=== PATIENT | male | born 1975 | race Caucasian/White ===

== ENCOUNTER → 2021-08-15 | Outpatient (CLI) | payer OTHER, SELFPAY ==
[2021-08-15 17:03] LABS: Mucous, Urine 0 SEEN /hpf (<or=2+); Squamous Epithelial Cells - UA 0 SEEN /hpf (0-5); White Blood Cells 0 SEEN /hpf (0-5)
[2021-08-15 17:47] LABS: Color, Urine Yellow (Yellow); Glucose, Dipstick Normal (Normal); Ketone-Dipstick Negative (Negative); Leukocyte Esterase-Dipstick 25 /ul (Negative); Nitrite-Dipstick Negative (Negative); Occult Blood-Urine 10 /ul (Negative); Protein-Dipstick 15 mg/dl (Negative); Urine Bilirubin Dipstick Negative (Negative); Urine Clarity Clear (Clear); Urine Urobilinogen Normal (Normal)
[2021-08-15 17:50] LABS: Absolute Lymphocyte Count 2.12 X10^3/uL (0.83-4.51); Absolute Neutrophil Count 5.6 X10^3/uL (2.0-7.7); Basophil# 0.04 X10^3/uL; Basophil% 0.4 % (0-1); Eosinophil# 0.19 X10^3/uL; Eosinophils% 2.1 % (0-5); Hemoglobin 15.9 g/dL (13.0-16.5); Lymphocyte # 2.12 X10^3/ul (0.83-4.51); Lymphocyte % 23.4 % (19-41); Mean Corp Hgb Conc 32.4 g/dL (32-36); Mean Corpuscular Hgb 32.3 pg (27.0-32.0); Mean Corpuscular Volume 99.6 fL (80-94); Mean Platelet Vol. 11.8 fl (6.2-12.0); Monocyte# 1.04 X10^3/uL; Monocyte% 11.5 % (0-10); NRBC Flagged by Analyzer 0 % (0-5); Neutrophil # 5.64 X10^3/uL (2.7-7.7); Neutrophil % 62.3 % (47-70); Platelet Count 188 K/mm3 (150-450); RBC Distribution Width CV 12.5 % (11.6-14.6); Red Blood Count 4.92 M/mm3 (4.6-6.2); White Blood Count 9.1 K/mm3 (4.4-11.0)
[2021-08-15 17:56] LABS: Bacteria 1+ /hpf (None Seen); Red Blood Cells-Urine 5-10 SEEN /hpf (0-5)
[2021-08-15 19:16] LABS: ALB/GLOB Ratio 0.9 RATIO (0.9-2.4); AST(SGOT) 30 U/L (15-37); Albumin, Serum 3.6 g/dL (3.2-5.0); BUN 18 mg/dL (7-18); BUN/Creat Ratio 16.4 RATIO (10-20); Calcium,Total 8.9 mg/dL (8.5-10.1); Globulin 3.8 g/dL (2.2-4.2); Glucose 100 mg/dL (74-106); Protein, Total 7.4 g/dL (6.4-8.2)
[2021-08-15 19:17] LABS: Alanine Aminotransfer ALT/SGPT 55 U/L (16-61); Alkaline Phosphatase 122 U/L (45-117); Chloride 107 mmol/L (98-107); Cholesterol 247 mg/dL (200); Potassium 3.7 mmol/L (3.5-5.1); Sodium Level 137 mmol/L (136-145)
[2021-08-15 19:18] LABS: Anion Gap 9 (5-15); High Density Lipoprotein 32 mg/dL; Thyroid Stim Hormone (TSH) 3.25 uIU/mL (0.358-3.74)
[2021-08-16 06:53] LABS: EST Glomerular Filtration Rate 77 mL/min (>60); Est Glom Filt Rate - Afr Amer 93 mL/min (>60)
[2021-08-16 07:45] LABS: Triglycerides 649 mg/dL
[2021-08-16 07:46] LABS: Very Low Density Lipoprotein 130 mg/dL (5-40)
== END | disposition home or self-care (01) ==
LOC: MFPLAB 16:44
PROVIDERS: Visit Provider Family Medicine
DX: I10 Essential (primary) hypertension (principal); R68.82 Decreased libido
CPT/HCPCS: 36415; 80053; 80061; 81001; 84402; 84403; 84443; 85025

== ENCOUNTER → 2021-08-23 | Outpatient (CLI) | payer OTHER, SELFPAY ==
--- NOTE | 2021-08-23 14:54 | CYSPIN_PTH ---
PATIENT: [place] LOC: [facility] U#:[id number] AGE/SX: 45/M ROOM: RE08/23/[address]: Dr. Janak Porter MD : 1975 BED: DIS: 08/23/2021 SPEC #: [id number] RECD: 08/24/21 07:42 STATUS: ALONZO NEGRETE #: [id number] ALEXANDRA: 08/23/21 14:[address]: Janak Porter DEPT: CYTOLOGY RECD BY: Makenzie Ackerman Tissues: Urine Procedures: Pap Stain (control) Special Stain Group II Cytospin Fluid HEADER OPERATION: Not noted PRE-OP DIAGNOSIS: Not noted TISSUE SUBMITTED: Urine for cytology DIAGNOSIS CYTOLOGY Urine for cytology (cytospin): Negative for malignant cells. Paucicellular specimen. MANISH:nadia 08/24/2021 CYTOLOGY STUDY Slides are reviewed. CYTOLOGY GROSS Received is 150 ml of light yellow cloudy fluid labeled with the patient's name and and designated per the requisition as urine. Submitted for cytology preparation. / nadia 08/23/2021 TC:4 CPT: 47304
[2021-08-23 14:55] LABS: Cytology, Body Fluid / CSF SEE PATHOLOGY REPORT
[2021-08-23 18:21] LABS: Cholesterol 259 mg/dL (200); High Density Lipoprotein 38 mg/dL; Triglycerides 288 mg/dL; Very Low Density Lipoprotein 58 mg/dL (5-40)
== END | disposition home or self-care (01) ==
LOC: MFPLAB 14:54
PROVIDERS: Visit Provider Family Medicine
DX: I10 Essential (primary) hypertension (principal)
CPT/HCPCS: 36415; 80061; 88108; 88313

== ENCOUNTER → 2021-11-27 | Outpatient (CLI) | payer OTHER, SELFPAY | END | disposition home or self-care (01) | LOC: LABSPEC 14:52 | PROVIDERS: Visit Provider Otolaryngology | DX: H65.21 Chronic serous otitis media, right ear (principal) ==

== ENCOUNTER → 2023-02-19 | Outpatient (CLI) | payer OTHER, SELFPAY ==
[2023-02-19 12:28] LABS: Bacteria 0 SEEN /hpf (None Seen); Mucous, Urine 0 SEEN /hpf (<or=2+); Red Blood Cells-Urine 0 SEEN /hpf (0-5); Squamous Epithelial Cells - UA 0 SEEN /hpf (0-5); White Blood Cells 0 SEEN /hpf (0-5)
--- OUTSIDE RECORDS SUMMARY | 2023-02-19 13:10 | XMS RPT_ITS | CCD ---
Author Name Unknown Address [address] [place] [address] Organization [facility] Care Team Providers Care Senior Engineering Team Leader Name Role Phone PROVIDER, UNSPECIFIED Unavailable Unavailabl e NIVIA, SARAN Unavailable Unavailable NIVIA, SARAN Unavailable Unavailable NIVIA, SARAN Unavailable Unavailable NIVIA, SARAN Unavailable Unavailable PROVIDER, UNSPECIFIED Unavailable Unavailabl e PCP, Unknown Unavailable Unavailable Benja Garcia Unavailable Unavailable Tracy Rudd Unavailable Unavailable PCP, Unknown Unavailable Unavailable Dev Maya Unavailable Unavailable PCP, Unknown Unavailable Unavailable Dinesh Leon Unavailable Unavailable PCP, Unknown Unavailable Unavailable Kizzy Mtz Unavailable Unavailable PCP, Unknown Unavailable Unavailable Required, No Pcp Unavailable Unavailable Cj Jain Unavailable Unavailable GURVINDER LAZO Attending Unavailabl e Unavailable Unavailable Unavailable Medications Current Medications Medication Drug Class(es) Dates Sig (Normalized) Sig (Original) Nicotine (1 source) Cholinergic Nicotinic Agonist Start: 10-16-2018 apply 1 dose transdermal route every twenty-four hours Nicotine Active 1 PATCH Q24H 56 October 16, 2018 9:51am PHENobarbital 100 mg oral tablet (1 source) Start: 06-07-2016 Phenobarbital Active 100 MG 2 times per day June 07, 2016 11:17am Problems Active Problems Problem Classification Problem Date Documented Da te Episodic/Chronic Other upper respiratory dise ase (2 sources) Pain in throat 01-26-2021 Episodic Past or Other Problems Problem Classification Problem Date Documented Date Episodic/Chronic Abdominal pain (2 sources) Epigastric pain; Translations: [Unspecified abdominal pain] Onset: 10-21-2016 Episodic Biliary tract disease (1 source) Calculus of gallbladder without cholecystitis without obstruction; Translations: [CALCULUS OF GALLBLADDER W/O CHOLECYSTITIS W/O OBSTRUCTION] Onset: 10-21-2016 Episodic Results Test Name Value Interpretation Reference Range Facil ity Vital Signs Date Time Vital Sign Value Performing Clinician Facility 01-26-2021 15:55-0500 Body height 193 cm No Pcp Required [facility] 01-26-2021 15:55-0500 Body temperature 97.88 [degF] No Pcp Required [facility] 01-26-2021 15:55-0500 Diastolic blood pressure 94 mm[Hg] No Pcp Required [facility] 01-26-2021 15:55-0500 Heart rate 87 /min No Pcp Required [facility] 01-26-2021 15:55-0500 SaO2% (BldA) [Mass fraction] 94 % No Pcp Required [facility] 01-26-2021 15:55-0500 Systolic blood pressure 154 mm[Hg] No Pcp Required [facility] Encounters Encounter Date Encounter Type Care Provider Facility Start: 01-17-2022 End: 01-18-2022 ambulatory PA MUNIRA HOLLINS Facility:B Start: 01-26-2021 End: 01-26-2021 Emergency department patient visit Cj Jain [facility] Start: 08-13-2017 End: 08-13-2017 Ambulatory Kizzy Mtz Facility:[facility] Start: 01-15-2017 Ambulatory Dinesh Flores ity:[facility] Start: 11-05-2016 End: 11-05-2016 Ambulatory Dev Maya Facility:[facility] Start: 10-28-2016 End: 10-28-2016 Ambulatory Tracy Rudd Facility:[facility] Start: 10-25-2016 Emergency department patient visit SARAN GONZÁLES [facility] Start: 10-25-2016 End: 10-25-2016 Emergency department patient visit UNSPECIFIED PROVIDER [facility] Start: 10-21-2016 End: 10-21-2016 Emergency department patient visit Unknown PCP Facility:[facility] Payers Date Payer Category Payer Unknown [id number] 1975 Unknown [id number] Self-pay Self Pay [id number] Unknown [id number] Unknown [employer] [place] Social History Date Type Detail Facility Tobacco smoking status NHIS Unknown if ever smoked [facility] Work Phone: Start: 1975 Sex Assigned At Male [facility] Work Phone: Tobacco smoking consumption unknown [facility] Goals Date Patient Goal Desired Activity /State Summary Purpose Family History No Family History Records FoundNo Family History Records FoundNo Family History Records FoundNo Family History Records FoundNo Family History Records Found Advance Directives No Advanced Directives Records FoundNo Advanced Directives Records FoundNo Advanced Directives Records FoundNo Advanced Directives Records FoundNo Advanced Directives Records Found Assessments No Assessments Information Available Additional Source Comments (unrecognized sect ion and content) No Status Records FoundNo Status Records FoundNo Status Records FoundNo Status Records FoundNo Status Records Found INFORMATION SOURCE (unrecogn ized section and content) DATE CREATED AUTHOR AUTHOR'S ORGANIZ ATION 08/14/2017 [facility] DATE CREATED AUTHOR AUTHOR'S ORGANIZ ATION 01/15/2019 [facility] DATE CREATED AUTHOR AUTHOR'S ORGANIZ ATION 02/01/2021 [facility] DATE CREATED AUTHOR AUTHOR'S ORGANIZ ATION 01/18/2022 [facility] ([place]) <item> Privacy Markings (unrecogniz ed section and content) Section Author: Kizzy Harvey PROHIBITION ON REDISCLOSURE OF CONFIDENTIAL INFORMATION This notice accompanies a disclosure of information concerning a client made to you with the consent of such client. FOR RECORDS PERTAINING TO PATIENTS WHO ARE OR HAVE BEEN ENROLLED IN A CHEMICAL DEPENDENCY/SUBSTANCEABUSE PROGRAM, SOME INFORMATION MAY BE OMITTED. This clinical summary was aggregated from multiple sources. Caution should be exercised in using it in the provision of clinical care. This summary normalizes information from multiple sources, and as a consequence, information in this document may materially change the coding, format and clinical context of patient data. In addition, data may be omitted in some cases. CLINICAL DECISIONS SHOULD BE BASED ON THE PRIMARY CLINICAL RECORDS. [employer] [facility]. provides no warranty or guarantee of the accuracy or completeness of information in this document.
[2023-02-19 15:33] LABS: Color, Urine Yellow (Yellow); Glucose, Dipstick Normal (Normal); Ketone-Dipstick Negative (Negative); Leukocyte Esterase-Dipstick Negative /ul (Negative); Nitrite-Dipstick Negative (Negative); Occult Blood-Urine Negative /ul (Negative); Protein-Dipstick Negative (Negative); Specific Gravity, Urine 1.015 (1.002-1.030); Urine Bilirubin Dipstick Negative (Negative); Urine Clarity Clear (Clear); Urine Urobilinogen Normal (Normal)
[2023-02-19 15:40] LABS: Absolute Lymphocyte Count 2.27 X10^3/uL (0.83-4.51); Absolute Neutrophil Count 5.4 X10^3/uL (2.0-7.7); Basophil# 0.03 X10^3/uL; Basophil% 0.3 % (0-1); Eosinophil# 0.14 X10^3/uL; Eosinophils% 1.6 % (0-5); Hematocrit 48.8 % (40-54); Hemoglobin 15.8 g/dL (13.0-16.5); Lymphocyte # 2.27 X10^3/ul (0.83-4.51); Lymphocyte % 26.3 % (19-41); Mean Corp Hgb Conc 32.4 g/dL (32-36); Mean Corpuscular Hgb 31.9 pg (27.0-32.0); Mean Corpuscular Volume 98.6 fL (80-94); Mean Platelet Vol. 11.8 fl (6.2-12.0); Monocyte# 0.76 X10^3/uL; Monocyte% 8.8 % (0-10); NRBC Flagged by Analyzer 0 % (0-5); Neutrophil # 5.41 X10^3/uL (2.7-7.7); Neutrophil % 62.8 % (47-70); Platelet Count 210 K/mm3 (150-450); RBC Distribution Width CV 13.2 % (11.6-14.6); RBC Distribution Width SD 47.7 fl (35.1-43.9); Red Blood Count 4.95 M/mm3 (4.6-6.2); White Blood Count 8.6 K/mm3 (4.4-11.0)
[2023-02-19 16:08] LABS: ALB/GLOB Ratio 1.1 RATIO (0.9-2.4); AST(SGOT) 24 U/L (15-37); Alanine Aminotransfer ALT/SGPT 40 U/L (16-61); Albumin, Serum 3.9 g/dL (3.2-5.0); Alkaline Phosphatase 115 U/L (45-117); Anion Gap 8 (5-15); BUN 15 mg/dL (7-18); BUN/Creat Ratio 15.3 RATIO (10-20); Chloride 109 mmol/L (98-107); Cholesterol 191 mg/dL (200); Creatinine, Serum 0.98 mg/dL (0.70-1.30); EST Glomerular Filtration Rate 87 mL/min (>60); Est Glom Filt Rate - Afr Amer 105 mL/min (>60); Globulin 3.7 g/dL (2.2-4.2); Glucose 81 mg/dL (74-106); High Density Lipoprotein 43 mg/dL; Magnesium 2.4 mg/dL (1.6-2.6); Potassium 4.2 mmol/L (3.5-5.1); Protein, Total 7.6 g/dL (6.4-8.2); Sodium Level 138 mmol/L (136-145); Thyroid Stim Hormone (TSH) 2.87 uIU/mL (0.358-3.74); Triglycerides 162 mg/dL; Very Low Density Lipoprotein 32 mg/dL (5-40)
== END | disposition home or self-care (01) ==
PROVIDERS: PCP Family Medicine; Visit Provider Family Medicine
DX: I10 Essential (primary) hypertension (principal)
CPT/HCPCS: 36415; 80053; 80061; 81001; 83735; 84443; 85025

== ENCOUNTER → 2023-09-05 | Outpatient (CLI) | payer OTHER, SELFPAY ==
--- NOTE | 2023-09-05 12:38 | RAD_ITS ---
STUDY: X-RAY CHEST REASON FOR EXAM: Male, 47 years old. CHEST PAIN TECHNIQUE: PA and lateral views of the chest. COMPARISON: None. FINDINGS: The lungs are clear and expanded. There is no demonstrated pleural abnormality. Normal size heart. Normal mediastinum and steffany. Normal visualized pulmonary arteries. Normal visualized aortic arch and descending thoracic aorta. Normal visualized thoracic spine. Normal visualized ribs, clavicles, and shoulders. There is no demonstrated abnormality of the visualized soft tissue structures of the upper abdomen. RAD/Chest PA and Lateral IMPRESSION: Normal x-ray examination of the chest. Electronically Signed: Efrain Boswell MD at 17:39 EDT ,
[2023-09-05 15:15] LABS: Absolute Lymphocyte Count 2.23 X10^3/uL (0.83-4.51); Absolute Neutrophil Count 4.6 X10^3/uL (2.0-7.7); Basophil# 0.03 X10^3/uL; Basophil% 0.4 % (0-1); Eosinophils% 1.3 % (0-5); Hematocrit 49.7 % (40-54); Hemoglobin 15.8 g/dL (13.0-16.5); Lymphocyte # 2.23 X10^3/ul (0.83-4.51); Lymphocyte % 28.2 % (19-41); Mean Corp Hgb Conc 31.8 g/dL (32-36); Mean Corpuscular Hgb 31.1 pg (27.0-32.0); Mean Corpuscular Volume 97.8 fL (80-94); Monocyte# 0.88 X10^3/uL; Monocyte% 11.1 % (0-10); NRBC Flagged by Analyzer 0 % (0-5); Neutrophil # 4.64 X10^3/uL (2.7-7.7); Neutrophil % 58.7 % (47-70); Platelet Count 190 K/mm3 (150-450); RBC Distribution Width CV 13.7 % (11.6-14.6); Red Blood Count 5.08 M/mm3 (4.6-6.2); White Blood Count 7.9 K/mm3 (4.4-11.0)
[2023-09-05 15:54] LABS: ALB/GLOB Ratio 1.1 RATIO (0.9-2.4); AST(SGOT) 29 U/L (15-37); Alanine Aminotransfer ALT/SGPT 41 U/L (16-61); Alkaline Phosphatase 110 U/L (45-117); Anion Gap 6 (5-15); BUN 14 mg/dL (7-18); BUN/Creat Ratio 14.6 RATIO (10-20); Calcium,Total 9.3 mg/dL (8.5-10.1); Chloride 109 mmol/L (98-107); Cholesterol 205 mg/dL (200); Creatinine, Serum 0.96 mg/dL (0.70-1.30); EST Glomerular Filtration Rate 89 mL/min (>60); Est Glom Filt Rate - Afr Amer 108 mL/min (>60); Globulin 3.7 g/dL (2.2-4.2); Glucose 95 mg/dL (74-106); High Density Lipoprotein 43 mg/dL; Potassium 4.2 mmol/L (3.5-5.1); Protein, Total 7.7 g/dL (6.4-8.2); Sodium Level 139 mmol/L (136-145); Thyroid Stim Hormone (TSH) 2.52 uIU/mL (0.358-3.74); Triglycerides 193 mg/dL; Very Low Density Lipoprotein 39 mg/dL (5-40)
== END | disposition home or self-care (01) ==
PROVIDERS: PCP Family Medicine; Referring Provider Family Medicine; Visit Provider Family Medicine
DX: R07.9 Chest pain, unspecified (principal); E78.5 Hyperlipidemia, unspecified
CPT/HCPCS: 36415; 71046; 80053; 80061; 84443; 85025

== ENCOUNTER → 2023-10-15 | Outpatient (CLI) | payer OTHER, SELFPAY ==
--- NOTE | 2023-10-15 12:50 | STRESSREP ---
Stress Test Report Date: 10/15/2023 Procedure: Exercise tolerance test Indications: Chest pain Consent: Per the patient Procedure: The patient exercised on a Dayday protocol for 7 minutes and 37 seconds achieving a peak heart rate of 155 bpm (89% predicted maximal heart rate) with a peak blood pressure 212/62 mmHg and a peak MET capacity of approximately 10.1 MET's. The baseline ECG demonstrated sinus rhythm. The peak exercise ECG demonstrated sinus tachycardia with no ischemic changes. There were no cardiac dysrhythmias pretest, during exercise, or recovery. The functional capacity was considered average. The patient had no complaints of chest discomfort during exercise or recovery. The examination was discontinued secondary to target heart rate being achieved. Impression: 1. Technically adequate (percent predicted maximal heart rate greater than 85%) exercise tolerance test 2. Peak exercise ECG with no ischemic changes 3. There were no cardiac dysrhythmias during exercise or recovery. Hypertensive response to exercise. This note was generated with [employer] software. It may contain incorrect words, spelling, and punctuation that were not noted in checking the note before signing.
== END | disposition home or self-care (01) ==
LOC: CVS 11:10
PROVIDERS: PCP Family Medicine; Referring Provider Family Medicine; Visit Provider Family Medicine
DX: R07.9 Chest pain, unspecified (principal)
CPT/HCPCS: 93017

== ENCOUNTER → 2024-11-12 | Outpatient (CLI) | payer OTHER, SELFPAY ==
--- OUTSIDE RECORDS SUMMARY | 2024-11-12 16:00 | XMS RPT_ITS | CCD ---
Author Organization [facility] Care Team Providers Care Acid Blower Name Role Phone PROVIDER, UNSPECIFIED Unavailable Unavailabl [...] Cj Jain Unavailable Unavailable GURVINDER LAZO Attending UnavailJanak Lindo Attending Unavailable Janak Porter Primary Care Unavailable Janak Porter Attending Unavailable Janak Porter Primary Care Unavailable Janak Porter Referring Unavailable Janak Porter Attending Unavailable Janak Porter Primary Care Unavailable Janak Porter Referring Unavailable Antonieta Zapien Attending Unavailable Janak Porter Referring Unavailable Janak Porter Primary Care Unavailable Janak Porter Consulting Unavailable Unavailable Unavailable Unavailable Medications Current Medications Medication Drug Class(es) Dates Sig (Normalized) Sig (Original) hydrocortisone 25 mg/ml topical cream (1 source) Corticosteroid Start: 10-24-2022 Hydrocortisone (Procto-Med Hc) 2.5 % cream with perineal applicator Active 1 APPLIC RC TWICE A DAY October 23, 2022 11:00pm Lisinopril (1 source) Angiotensin Converting Enzyme Inhibitor Start: 10-24-2022 take 1 mg by mouth once daily Lisinopril Active MG PO DAILY October 23, 2022 11:00pm Nicotine (1 source) Cholinergic Nicotinic Agonist Start: 10-16-2018 apply 1 dose transdermal route every twenty-four hours Nicotine Active 1 PATCH Q24H 56 October 16, 2018 9:51am omeprazole 20 mg delayed release oral capsule (1 source) Proton Pump Inhibitor Start: 10-24-2022 take 1 mg by mouth once daily Omeprazole Active MG PO DAILY October 23, 2022 11:00pm PHENobarbital 100 mg oral tablet (2 sources) Start: 10-24-2022 take 100 mg by mouth twice daily Phenobarbital Active 100 MG PO TWICE A DAY October 23, 2022 11:00pm Start: 06-07-2016 Phenobarbital Active 100 MG 2 times per day June 07, 2016 11:17am rosuvastatin calcium 5 mg oral tablet (1 source) HMG-CoA Reductase Inhibitor Start: 10-24-2022 take 1 mg by mouth once daily Rosuvastatin Active MG PO DAILY October 23, 2022 11:00pm Problems Active Problems Problem Classification Problem Date Documented Date Episodic/Chronic Essential hypertension (1 source) Essential (primary) hypertension; Translations: [Essential (primary) hypertension] Onset: 02-25-2023 Chronic Hemorrhoids (1 source) Thrombosed external hemorrhoids; Translations: [Perianal venous thrombosis] 10-24-2022 Episodic Nonspecific chest pain (2 sources) Chest pain, unspecified; Translations: [Chest pain, unspecified] Onset: 10-31-2023 Episodic Other upper respiratory disease (2 sources) Pain in throat 01-26-2021 Episodic Comment on above: SORE THROAT Substance-related disorders (1 source) Nicotine dependence, cigarettes, uncomplicated; Translations: [NICOTINE DEPENDENCE, CIGARETTES, UNCOMPLICATED] Onset: 10-21-2016 Chronic Unclassified (1 source) Noninfective gastroenteritis and colitis, unspecified / K52.9(ICD-10) Onset: 10-25-2016 Unclassified (1 source) Lower abdominal pain, unspecified / R10.30(ICD-10) Onset: 10-25-2016 Past or Other Problems Problem Classification Problem Date Documented Date Episodic/Chronic Abdominal pain (2 sources) Epigastric pain; Translations: [Unspecified abdominal pain] Onset: 10-21-2016 Episodic Biliary tract disease (1 source) Calculus of gallbladder without cholecystitis without obstruction; Translations: [CALCULUS OF GALLBLADDER W/O CHOLECYSTITIS W/O OBSTRUCTION] Onset: 10-21-2016 Episodic Results Test Name Value Interpretation Reference Range Facility Stress Reporton 10-15-2023 Stress Report [facility] Cardiovascular Services [address] [place] [address] MR#: [id number] Acct: [id number] Name: NADEGE HILLS Rep #: [id number] : 1975 47 From: Antonieta Zapien MD Primary Care: Dr. Janak Porter MD Status: REG CLI Referring Dr: Janak Porter MD Sex: M C Stress Test Report Date: 10/15/2023 Procedure: Exercise tolerance test Indications: Chest pain Consent: Per the patient Procedure: The patient exercised on a Dayday protocol for 7 minutes and 37 seconds achieving a peak heart rate of 155 bpm (89% predicted maximal heart rate) with a peak blood pressure 212/62 mmHg and a peak MET capacity of approximately 10.1 MET's. The baseline ECG demonstrated sinus rhythm. The peak exercise ECG demonstrated sinus tachycardia with no ischemic changes. There were no cardiac dysrhythmias pretest, during exercise, or recovery. The functional capacity was considered average. The patient had no complaints of chest discomfort during exercise or recovery. The examination was discontinued secondary to target heart rate being achieved. Impression: 1. Technically adequate (percent predicted maximal heart rate greater than 85%) exercise tolerance test 2. Peak exercise ECG with no ischemic changes 3. There were no cardiac dysrhythmias during exercise or recovery. Hypertensive response to exercise. This note was generated with M2Gation software. It may contain incorrect words, spelling, and punctuation that were not noted in checking the note before signing. 10/15/23 1251 Date Antonieta Zapien MD CC: Dr. Janak Porter MD Date Dictated: 10/15/23 1250 Date Transcribed: 10/15/23 125 Geotechnical Operating Engineer: CHRISTIAN Signed Normal [facility] CBC W/Diff, Automatedon 07- Absolute Lymph 2.23 X10 3/uL Normal 0.83-4.51 [facility] Comment on above: Order Comment: Order Date: 09/05/23 Order Info: 0184-1 - CBCD Performed By: #### L 100.0100, L500.4050, L500.4100, L501.9520 #### [facility] Laboratory [address] [place], [address] Absolute Neut 4.6 X10 3/uL Normal 2.0-7.7 [facility] Comment on above: Order Comment: Order Date: 09/05/23 Order Info: 0184-1 - CBCD Performed By: #### L 100.0100, L500.4050, L500.4100, L501.9520 #### [facility] [address] [place], [address] Basophils/100 WBC (Bld) 0.4 % Normal 0-1 [facility] Comment on above: Order Comment: Order Date: 09/05/23 Order Info: 018-1 - CBCD Performed By: #### L 100.0100, L500.4050, L500.4100, L501.9520 #### [facility] [address] [place], [address] Eosinophils/100 WBC (Bld) 1.3 % Normal 0-5 [facility] Comment on above: Order Comment: Order Date: 09/05/23 Order Info: 0184-1 - CBCD Performed By: #### L 100.0100, L500.4050, L500.4100, L501.9520 #### [facility] [address] [place], [address] Erythrocyte distribution width (RBC) [Ratio] 13.7 % Normal 11.6-14.6 [facility] Comment on above: Order Comment: Order Date: 09/05/23 Order Info: 0184-1 - CBCD Performed By: #### L 100.0100, L500.4050, L500.4100, L501.9520 #### [facility] [address] [place], [address] Hematocrit (Bld) [Volume fraction] 49.7 % Normal 40-54 [facility] Comment on above: Order Comment: Order Date: 09/05/23 Order Info: 0184-1 - CBCD Performed By: #### L 100.0100, L500.4050, L500.4100, L501.9520 #### [facility] [address] [place], [address] Hemoglobin (Bld) [Mass/Vol] 15.8 g/dL Normal 13.0-16.5 [facility] Comment on above: Order Comment: Order Date: 09/05/23 Order Info: 0184-1 - CBCD Performed By: #### L 100.0100, L500.4050, L500.4100, L501.9520 #### [facility] [address] [place], [address] IG% 0.300 Normal 0.0-0.9 [facility] Comment on above: Order Comment: Order Date: 09/05/23 Order Info: 0184-1 - CBCD Result Comment: IG% - Immature Granulocytes (promyelocytes, myelocytes and metamyelocytes) > 1% indicates that a LEFT SHIFT is Present. Performed By: #### L 100.0100, L500.4050, L500.4100, L501.9520 #### [facility] [address] [place], [address] Lymphocytes/100 WBC (Bld) 28.2 % Normal 19-41 [facility] Comment on above: Order Comment: Order Date: 09/05/23 Order Info: 0184-1 - CBCD Performed By: #### L 100.0100, L500.4050, L500.4100, L501.9520 #### [facility] [address] [place], [address] MCH (RBC) [Entitic mass] 31.1 pg Normal 27.0-32.0 [facility] Comment on above: Order Comment: Order Date: 09/05/23 Order Info: 0184-1 - CBCD Performed By: #### L 100.0100, L500.4050, L500.4100, L501.9520 #### [facility] [address] [place], [address] MCHC (RBC) [Mass/Vol] 31.8 g/dL Low 32-36 [facility] Comment on above: Order Comment: Order Date: 09/05/23 Order Info: 0184-1 - CBCD Performed By: #### L 100.0100, L500.4050, L500.4100, L501.9520 #### [facility] [address] [place], [address] MCV (RBC) [Entitic vol] 97.8 fL High 80-94 [facility] Comment on above: Order Comment: Order Date: 09/05/23 Order Info: 0184-1 - CBCD Performed By: #### L 100.0100, L500.4050, L500.4100, L501.9520 #### [facility] [address] [place], [address] Monocytes/100 WBC (Bld) 11.1 % High 0-10 [facility] Comment on above: Order Comment: Order Date: 09/05/23 Order Info: 0184-1 - CBCD Performed By: #### L 100.0100, L500.4050, L500.4100, L501.9520 #### [facility] [address] [place], [address] Neutrophils/100 WBC (Bld) 58.7 % Normal 47-70 [facility] Comment on above: Order Comment: Order Date: 09/05/23 Order Info: 0184-1 - CBCD Performed By: #### L 100.0100, L500.4050, L500.4100, L501.9520 #### [facility] [address] [place], [address] Nucleated RBC (Bld) [#/Vol] 0 10*3/uL Normal 0-5 [facility] Comment on above: Order Comment: Order Date: 09/05/23 Order Info: 0184-1 - CBCD Performed By: #### L 100.0100, L500.4050, L500.4100, L501.9520 #### [facility] [address] [place], [address] Platelet mean volume (Bld) [Entitic vol] 12.0 fL Normal 6.2-12.0 [facility] Comment on above: Order Comment: Order Date: 09/05/23 Order Info: 0184-1 - CBCD Performed By: #### L 100.0100, L500.4050, L500.4100, L501.9520 #### [facility] [address] [place], [address] Platelets (Bld) [#/Vol] 190 10*3/uL Normal 150-450 [facility] Comment on above: Order Comment: Order Date: 09/05/23 Order Info: 0184- - CBCD Performed By: #### L 100.0100, L500.4050, L500.4100, L501.9520 #### [facility] [address] [place], [address] RBC (Bld) [#/Vol] 5.08 10*6/uL Normal 4.6-6.2 [facility] Comment on above: Order Comment: Order Date: 09/05/23 Order Info: 0184-1 - CBCD Performed By: #### L 100.0100, L500.4050, L500.4100, L501.9520 #### [facility] [address] [place], [address] RDW SD 50.0 fl High 35.1-43.9 [facility] Comment on above: Order Comment: Order Date: 09/05/23 Order Info: 0184-1 - CBCD Performed By: #### L 100.0100, L500.4050, L500.4100, L501.9520 #### [facility] [address] [place], [address] WBC (Bld) [#/Vol] 7.9 10*3/uL Normal 4.4-11.0 [facility] Comment on above: Order Comment: Order Date: 09/05/23 Order Info: 0184-1 - CBCD Performed By: #### L 100.0100, L500.4050, L500.4100, L501.9520 #### [facility] [address] [place], [address] Chest PA and Lateralon 09-04 Chest PA and Lateral [facility] Imaging Services [address] [place], [place] [address] Chest PA and Lateral MR#: [id number] Acct: [id number] Name: NADEGE HILLS Rep #: [id number] : 1975 M 47 From: Efrain Boswell MD PCP: Dr. Janak Porter MD Status: [facility] Study: Chest PA and Lateral Date of Exam: 09/05/23 Exam# [id number] Ordering Dr: Janak Porter MD [id number] STUDY: X-RAY CHEST REASON FOR EXAM: Male, 47 years old. CHEST PAIN TECHNIQUE: PA and lateral views of the chest. COMPARISON: None. FINDINGS: The lungs are clear and expanded. There is no demonstrated pleural abnormality. Normal size heart. Normal mediastinum and steffany. Normal visualized pulmonary arteries. Normal visualized aortic arch and descending thoracic aorta. Normal visualized thoracic spine. Normal visualized ribs, clavicles, and shoulders. There is no demonstrated abnormality of the visualized soft tissue structures of the upper abdomen. RAD/Chest PA and Lateral IMPRESSION: Normal x-ray examination of the chest. Electronically Signed: Efrain Boswell MD at 17:39 EDT , CC: Dr. Janak Porter MD Geotechnical Operating Engineer: Signed Normal [facility] Comprehensive Metabolic Prof ilon 09-05-2023 Albumin [Mass/Vol] 4.0 g/dL Normal 3.2-5.0 [facility] Comment on above: Order Comment: Order Date: 09/05/23 Order Info: [id number] - CMP Order Info: [id number] - LIPID Order Info: [id number] - TSH Performed By: #### L 100.0100, L500.4050, L500.4100, L501.9520 #### [facility] [address] [place], [place], [address] Albumin/Globulin [Mass ratio] 1.1 {ratio} Normal 0.9-2.4 [facility] Comment on above: Order Comment: Order Date: 09/05/23 Order Info: [id number] - CMP Order Info: [id number] - LIPID Order Info: [id number] - TSH Performed By: #### L 100.0100, L500.4050, L500.4100, L501.9520 #### [facility] [address] [place], [place], [id number] ALK P 110 U/L Normal 45-117 [facility] Comment on above: Order Comment: Order Date: 09/05/23 Order Info: [id number] - CMP Order Info: [id number] - LIPID Order Info: [id number] - TSH Performed By: #### L 100.0100, L500.4050, L500.4100, L501.9520 #### [facility] [address] [place], [address] ALT [Catalytic activity/Vol] 41 U/L Normal 16-61 [facility] Comment on above: Order Comment: Order Date: 09/05/23 Order Info: 785- - CMP Order Info: [id number] - LIPID Order Info: 3 - TSH Performed By: #### L 100.0100, L500.4050, L500.4100, L501.9520 #### [facility] [address] [place], [address] AST [Catalytic activity/Vol] 29 U/L Normal 15-37 [facility] Comment on above: Order Comment: Order Date: 09/05/23 Order Info: [id number] - CMP Order Info: - LIPID Order Info: [id number] - TSH Performed By: #### L 100.0100, L500.4050, L500.4100, L501.9520 #### [facility] [address] [place], [address] Bilirubin [Mass/Vol] 0.70 mg/dL Normal 0.20-1.00 [facility] Comment on above: Order Comment: Order Date: 09/05/23 Order Info: [id number] - CMP Order Info: - LIPID Order Info: [id number] - TSH Result Comment: For patients on eltrombopag therapy, use of Dimension [place] TBIL is not recommended. Performed By: #### L 100.0100, L500.4050, L500.4100, L501.9520 #### [facility] [address] [place], [address] BUN/CRE 14.6 RATIO Normal 10-20 [facility] Comment on above: Order Comment: Order Date: 09/05/23 Order Info: [id number] - CMP Order Info: [id number] - LIPID Order Info: 3 - TSH Performed By: #### L 100.0100, L500.4050, L500.4100, L501.9520 #### [facility] [address] [place], [address] CA,Total 9.3 mg/dL Normal 8.5-10.1 [facility] Comment on above: Order Comment: Order Date: 09/05/23 Order Info: [id number] - CMP Order Info: [id number] - LIPID Order Info: [id number] - TSH Performed By: #### L 100.0100, L500.4050, L500.4100, L501.9520 #### [facility] [address] [place], [address] Chloride [Moles/Vol] 109 mmol/L High 98-107 [facility] Comment on above: Order Comment: Order Date: 09/05/23 Order Info: [id number] - CMP Order Info: - LIPID Order Info: [id number] - TSH Performed By: #### L 100.0100, L500.4050, L500.4100, L501.9520 #### [facility] [address] [place], [address] CO2 [Moles/Vol] 24.0 mmol/L Normal 21.0-32.0 [facility] Comment on above: Order Comment: Order Date: 09/05/23 Order Info: [id number] - CMP Order Info: - LIPID Order Info: [id number] - TSH Performed By: #### L 100.0100, L500.4050, L500.4100, L501.9520 #### [facility] [address] [place], [address] Creatinine [Mass/Vol] 0.96 mg/dL Normal 0.70-1.30 [facility] Comment on above: Order Comment: Order Date: 09/05/23 Order Info: 0786- - CMP Order Info: [id number] - LIPID Order Info: [id number] - TSH Result Comment: The validity of the calculated GFR GFRAA in patients over 70 years has not been determined. Clinical correlation is essential. Performed By: #### L 100.0100, L500.4050, L500.4100, L501.9520 #### [facility] [address] [place], [address] EST GFR - AA 108 mL/min Normal >60 [facility] Comment on above: Order Comment: Order Date: 09/05/23 Order Info: [id number] - CMP Order Info: [id number] - LIPID Order Info: [id number] - TSH Result Comment: Afri can [place] GFR Calc Performed By: #### L 100.0100, L500.4050, L500.4100, L501.9520 #### [facility] [address] [place], [address] GAP 6 Normal 5-15 [facility] Comment on above: Order Comment: Order Date: 09/05/23 Order Info: [id number] - CMP Order Info: [id number] - LIPID Order Info: [id number] - TSH Performed By: #### L 100.0100, L500.4050, L500.4100, L501.9520 #### [facility] [address] [place], [address] GFR/1.73 sq M.predicted among non-blacks MDRD (S/P/Bld) [Vol rate/Area] 89 mL/min/{1.73_m2} Normal >60 [facility] Comment on above: Order Comment: Order Date: 09/05/23 Order Info: 07 - CMP Order Info: [id number] - LIPID Order Info: [id number] - TSH Result Comment: Non- GFR Calc Performed By: #### L 100.0100, L500.4050, L500.4100, L501.9520 #### [facility] [address] [place], [address] Globulin (S) [Mass/Vol] 3.7 g/dL Normal 2.2-4.2 [facility] Comment on above: Order Comment: Order Date: 09/05/23 Order Info: 86- - CMP Order Info: [id number] - LIPID Order Info: 3 - TSH Performed By: #### L 100.0100, L500.4050, L500.4100, L501.9520 #### [facility] [address] [place], [address] Glucose [Mass/Vol] 95 mg/dL Normal 74-106 [facility] Comment on above: Order Comment: Order Date: 09/05/23 Order Info: 0786- - CMP Order Info: [id number] - LIPID Order Info: 3 - TSH Performed By: #### L 100.0100, L500.4050, L500.4100, L501.9520 #### [facility] [address] [place], [address] Potassium [Moles/Vol] 4.2 mmol/L Normal 3.5-5.1 [facility] Comment on above: Order Comment: Order Date: 09/05/23 Order Info: 0786 - CMP Order Info: [id number] - LIPID Order Info: 3 - TSH Performed By: #### L 100.0100, L500.4050, L500.4100, L501.9520 #### [facility] [address] [place], [address] Sodium [Moles/Vol] 139 mmol/L Normal 136-145 [facility] Comment on above: Order Comment: Order Date: 09/05/23 Order Info: 0786- - CMP Order Info: [id number] - LIPID Order Info: 3 - TSH Performed By: #### L 100.0100, L500.4050, L500.4100, L501.9520 #### [facility] [address] [place], [address] T PROT 7.7 g/dL Normal 6.4-8.2 [facility] Comment on above: Order Comment: Order Date: 09/05/23 Order Info: 0786- - CMP Order Info: [id number] - LIPID Order Info: [id number] - TSH Performed By: #### L 100.0100, L500.4050, L500.4100, L501.9520 #### [facility] [address] [place], [address] Urea nitrogen [Mass/Vol] 14 mg/dL Normal 7-18 [facility] Comment on above: Order Comment: Order Date: 09/05/23 Order Info: [id number] - CMP Order Info: [id number] - LIPID Order Info: [id number] - TSH Performed By: #### L 100.0100, L500.4050, L500.4100, L501.9520 #### [facility] [address] [place], [address] Lipid Profileon 09-05-2023 Cholesterol [Mass/Vol] 205 mg/dL High 200 [facility] Comment on above: Order Comment: Order Date: 02/19/23 Order Info: 0184-1 - CBCD Result Comment: <200 mg/dL Desirable 200-240 mg/dL Borderline >240 mg/dL High Risk Performed By: #### L 100.0100, L501.5200, L501.9520, L500.4100, L500.4050 #### [facility] [address] [place], [address] Cholesterol in HDL [Mass/Vol] 43 mg/dL Normal [facility] Comment on above: Order Comment: Order Date: 02/19/23 Order Info: 0184-1 - CBCD Result Comment: The drugs N-Acetylcysteine and Metamizole may falsely depress this assay. Reference Range HDL <40 mg/dL Low HDL Cholesterol HDL >or= 60 mg/dL High HDL Cholesterol Performed By: #### L 100.0100, L501.5200, L501.9520, L500.4100, L500.4050 #### [facility] [address] [place], [address] Cholesterol in LDL [Mass/Vol] 123 mg/dL Normal 0-130 [facility] Comment on above: Order Comment: Order Date: 02/19/23 Order Info: 0184-1 - CBCD Performed By: #### L 100.0100, L501.5200, L501.9520, L500.4100, L500.4050 #### [facility] [address] [place], [address] Cholesterol in VLDL [Mass/Vol] 39 mg/dL Normal 5-40 [facility] Comment on above: Order Comment: Order Date: 02/19/23 Order Info: 0184- - CBCD Performed By: #### L 100.0100, L501.5200, L501.9520, L500.4100, L500.4050 #### [facility] [address] [place], [address] Triglyceride [Mass/Vol] 193 mg/dL Normal [facility] Comment on above: Order Comment: Order Date: 02/19/23 Order Info: 0184- - CBCD Result Comment: The drugs N-Acetylcysteine and Metamizole may falsely depress this assay. Serum Triglycerides Reference Interval Normal <150 mg/dL Borderline high 150 - 199 mg/dL High 200 - 499 mg/dL Very High > or = 500 mg/dL Performed By: #### L 100.0100, L501.5200, L501.9520, L500.4100, L500.4050 #### [facility] [address] [place], [address] Thyroid Stim Hormone (TSH)on 09-05-2023 TSH 2.52 uIU/mL Normal 0.358-3.74 [facility] Comment on above: Order Comment: Order Date: 02/19/23 Order Info: 0184-1 - CBCD Performed By: #### L 100.0100, L501.5200, L501.9520, L500.4100, L500.4050 #### [facility] [address] [place], [address] Absolute lymphocyte countOrd ered By: Janak Porter on 02-19-2023 Lymphocytes Auto (Unsp spec) [#/Vol] 2.27 10*3/uL 0.83-4.51 [facility] Basophil percentageOrdered B y: Janak Porter on 02-19-2023 Basophil percentage 0 SEEN /hpf 0-5 [facility] Basophils/100 WBC (Bld) 0.3 % 0-1 [facility] Bilirubin [Mass/Vol] 0.50 mg/dL 0.20-1.00 [facility] Comment on above: For patients on eltr ombopag therapy, use of Dimension [place] TBIL is not recommended. Chloride [Moles/Vol] 109 mmol/L 98-107 [facility] Cholesterol [Mass/Vol] 191 mg/dL <200 [facility] Comment on above: <200 mg/dL Desirable 200-240 mg/dL Borderline >240 mg/dL High Risk Eosinophils/100 WBC (Bld) 1.6 % 0-5 [facility] Glucose [Mass/Vol] 81 mg/dL 74-106 [facility] Neutrophils (Bld) [#/Vol] 5.4 10*3/uL 2.0-7.7 [facility] Neutrophils/100 WBC (Bld) 62.8 % 47-70 [facility] Potassium [Moles/Vol] 4.2 mmol/L 3.5-5.1 [facility] Comment on above: Slight Hemolysis, Re sult may be falsely increased. Protein [Mass/Vol] 7.6 g/dL 6.4-8.2 [facility] Sodium [Moles/Vol] 138 mmol/L 136-145 [facility] Triglyceride [Mass/Vol] 162 mg/dL <199 [facility] Comment on above: The drugs N-Acetylcy steine and Metamizole may falsely depress this assay.Serum Triglycerides Reference Interval Normal <150 mg/dL Borderline high 150 - 199 mg/dL High 200 - 499 mg/dL Very High > or = 500 mg/dL WBC (Bld) [#/Vol] 8.6 10*3/uL 4.4-11.0 [facility] Bilirubin Test strip Ql (U)O rdered By: Janak Porter on 02-19-2023 Bilirubin Ql (U) Negative Negative [facility] Blood erythrocytes count (nu mber/volume)Ordered By: Janak Porter on 02-19-2023 RBC (Bld) [#/Vol] 4.95 10*6/uL 4.6-6.2 [facility] Blood hemoglobin measurement (mass/volume)Ordered By: Janak Porter on 02-19-2023 Hemoglobin (Bld) [Mass/Vol] 15.8 g/dL 13.0-16.5 [facility] Blood lymphocytes/100 leukoc ytesOrdered By: Janak Porter on 02-19-2023 Lymphocytes/100 WBC (Bld) 26.3 % 19-41 [facility] Blood monocytes/100 leukocyt esOrdered By: Janak Porter on 02-19-2023 Monocytes/100 WBC (Bld) 8.8 % 0-10 [facility] Blood platelet mean volumeOr dered By: Janak Porter on 02-19-2023 Platelet mean volume (Bld) [Entitic vol] 11.8 fL 6.2-12.0 [facility] CBC W/Diff, Automatedon Absolute Lymph 2.27 X10 3/uL Normal 0.83-4.51 [facility] Comment on above: Order Comment: Order Date: 02/19/23 Order Info: [id number] - CBCD Performed By: #### L 100.0100, L501.5200, L501.9520, L500.4100, L500.4050 #### [facility] [address] [place], [place], [id number] Absolute Neut 5.4 X10 3/uL Normal 2.0-7.7 [facility] Comment on above: Order Comment: Order Date: 02/19/23 Order Info: [id number] - CBCD Performed By: #### L 100.0100, L501.5200, L501.9520, L500.4100, L500.4050 #### [facility] [address] [place], [address] Basophils/100 WBC (Bld) 0.3 % Normal 0-1 [facility] Comment on above: Order Comment: Order Date: 02/19/23 Order Info: [id number] - CBCD Performed By: #### L 100.0100, L501.5200, L501.9520, L500.4100, L500.4050 #### [facility] [address] [place], [address] Eosinophils/100 WBC (Bld) 1.6 % Normal 0-5 [facility] Comment on above: Order Comment: Order Date: 02/19/23 Order Info: [id number] - CBCD Performed By: #### L 100.0100, L501.5200, L501.9520, L500.4100, L500.4050 #### [facility] [address] [place], [address] Erythrocyte distribution width (RBC) [Ratio] 13.2 % Normal 11.6-14.6 [facility] Comment on above: Order Comment: Order Date: 02/19/23 Order Info: [id number] - CBCD Performed By: #### L 100.0100, L501.5200, L501.9520, L500.4100, L500.4050 #### [facility] [address] [place], [address] Hematocrit (Bld) [Volume fraction] 48.8 % Normal 40-54 [facility] Comment on above: Order Comment: Order Date: 02/19/23 Order Info: [id number] - CBCD Performed By: #### L 100.0100, L501.5200, L501.9520, L500.4100, L500.4050 #### [facility] [address] [place], [address] Hemoglobin (Bld) [Mass/Vol] 15.8 g/dL Normal 13.0-16.5 [facility] Comment on above: Order Comment: Order Date: 02/19/23 Order Info: [id number] - CBCD Performed By: #### L 100.0100, L501.5200, L501.9520, L500.4100, L500.4050 #### [facility] [address] [place], [address] IG% 0.200 Normal 0.0-0.9 [facility] Comment on above: Order Comment: Order Date: 02/19/23 Order Info: [id number] - CBCD Result Comment: IG% - Immature Granulocytes (promyelocytes, myelocytes and metamyelocytes) > 1% indicates that a LEFT SHIFT is Present. Performed By: #### L 100.0100, L501.5200, L501.9520, L500.4100, L500.4050 #### [facility] [address] [place], [address] Lymphocytes/100 WBC (Bld) 26.3 % Normal 19-41 [facility] Comment on above: Order Comment: Order Date: 02/19/23 Order Info: [id number] - CBCD Performed By: #### L 100.0100, L501.5200, L501.9520, L500.4100, L500.4050 #### [facility] [address] [place], [address] MCH (RBC) [Entitic mass] 31.9 pg Normal 27.0-32.0 [facility] Comment on above: Order Comment: Order Date: 02/19/23 Order Info: [id number] - CBCD Performed By: #### L 100.0100, L501.5200, L501.9520, L500.4100, L500.4050 #### [facility] [address] [place], [address] MCHC (RBC) [Mass/Vol] 32.4 g/dL Normal 32-36 [facility] Comment on above: Order Comment: Order Date: 02/19/23 Order Info: [id number] - CBCD Performed By: #### L 100.0100, L501.5200, L501.9520, L500.4100, L500.4050 #### [facility] [address] [place], [address] MCV (RBC) [Entitic vol] 98.6 fL High 80-94 [facility] Comment on above: Order Comment: Order Date: 02/19/23 Order Info: [id number] - CBCD Performed By: #### L 100.0100, L501.5200, L501.9520, L500.4100, L500.4050 #### [facility] [address] [place], [address] Monocytes/100 WBC (Bld) 8.8 % Normal 0-10 [facility] Comment on above: Order Comment: Order Date: 02/19/23 Order Info: [id number] - CBCD Performed By: #### L 100.0100, L501.5200, L501.9520, L500.4100, L500.4050 #### [facility] [address] [place], [address] Neutrophils/100 WBC (Bld) 62.8 % Normal 47-70 [facility] Comment on above: Order Comment: Order Date: 02/19/23 Order Info: [id number] - CBCD Performed By: #### L 100.0100, L501.5200, L501.9520, L500.4100, L500.4050 #### [facility] [address] [place], [address] Nucleated RBC (Bld) [#/Vol] 0 10*3/uL Normal 0-5 [facility] Comment on above: Order Comment: Order Date: 02/19/23 Order Info: [id number] - CBCD Performed By: #### L 100.0100, L501.5200, L501.9520, L500.4100, L500.4050 #### [facility] [address] [place], [address] Platelet mean volume (Bld) [Entitic vol] 11.8 fL Normal 6.2-12.0 [facility] Comment on above: Order Comment: Order Date: 02/19/23 Order Info: [id number] - CBCD Performed By: #### L 100.0100, L501.5200, L501.9520, L500.4100, L500.4050 #### [facility] [address] [place], [address] Platelets (Bld) [#/Vol] 210 10*3/uL Normal 150-450 [facility] Comment on above: Order Comment: Order Date: 02/19/23 Order Info: [id number]- - CBCD Performed By: #### L 100.0100, L501.5200, L501.9520, L500.4100, L500.4050 #### [facility] [address] [place], [address] RBC (Bld) [#/Vol] 4.95 10*6/uL Normal 4.6-6.2 [facility] Comment on above: Order Comment: Order Date: 02/19/23 Order Info: [id number]- - CBCD Performed By: #### L 100.0100, L501.5200, L501.9520, L500.4100, L500.4050 #### [facility] [address] [place], [address] RDW SD 47.7 fl High 35.1-43.9 [facility] Comment on above: Order Comment: Order Date: 02/19/23 Order Info: [id number] - CBCD Performed By: #### L 100.0100, L501.5200, L501.9520, L500.4100, L500.4050 #### [facility] [address] [place], [address] WBC (Bld) [#/Vol] 8.6 10*3/uL Normal 4.4-11.0 [facility] Comment on above: Order Comment: Order Date: 02/19/23 Order Info: [id number] - CBCD Performed By: #### L 100.0100, L501.5200, L501.9520, L500.4100, L500.4050 #### [facility] [address] [place], [address] Comprehensive Metabolic Prof ilon 02-19-2023 Albumin [Mass/Vol] 3.9 g/dL Normal 3.2-5.0 [facility] Comment on above: Order Comment: Order Date: 02/19/23 Order Info: [id number] - CMP Order Info: [id number] - LIPID Order Info: [id number] - MG Order Info: [id number] - TSH Performed By: #### L 100.0100, L501.5200, L501.9520, L500.4100, L500.4050 #### [facility] [address] [place], [address] Albumin/Globulin [Mass ratio] 1.1 {ratio} Normal 0.9-2.4 [facility] Comment on above: Order Comment: Order Date: 02/19/23 Order Info: [id number] - CMP Order Info: [id number] - LIPID Order Info: [id number] - MG Order Info: [id number] - TSH Performed By: #### L 100.0100, L501.5200, L501.9520, L500.4100, L500.4050 #### [facility] [address] [place], [address] ALK P 115 U/L Normal 45-117 [facility] Comment on above: Order Comment: Order Date: 02/19/23 Order Info: [id number] - CMP Order Info: [id number] - LIPID Order Info: [id number] - MG Order Info: [id number] - TSH Performed By: #### L 100.0100, L501.5200, L501.9520, L500.4100, L500.4050 #### [facility] [address] [place], [address] ALT [Catalytic activity/Vol] 40 U/L Normal 16-61 [facility] Comment on above: Order Comment: Order Date: 02/19/23 Order Info: [id number] - CMP Order Info: [id number] - LIPID Order Info: [id number] - MG Order Info: [id number] - TSH Performed By: #### L 100.0100, L501.5200, L501.9520, L500.4100, L500.4050 #### [facility] [address] [place], [address] AST [Catalytic activity/Vol] 24 U/L Normal 15-37 [facility] Comment on above: Order Comment: Order Date: 02/19/23 Order Info: [id number] - CMP Order Info: [id number] - LIPID Order Info: [id number] - MG Order Info: 301-3 - TSH Result Comment: Slig ht Hemolysis, Result may be falsely increased. Performed By: #### L 100.0100, L501.5200, L501.9520, L500.4100, L500.4050 #### [facility] [address] [place], [address] Bilirubin [Mass/Vol] 0.50 mg/dL Normal 0.20-1.00 [facility] Comment on above: Order Comment: Order Date: 02/19/23 Order Info: [id number] - CMP Order Info: [id number] - LIPID Order Info: [id number] - MG Order Info: [id number] - TSH Result Comment: For patients on eltrombopag therapy, use of Dimension [place] TBIL is not recommended. Performed By: #### L 100.0100, L501.5200, L501.9520, L500.4100, L500.4050 #### [facility] [address] [place], [address] BUN/CRE 15.3 RATIO Normal 10-20 [facility] Comment on above: Order Comment: Order Date: 02/19/23 Order Info: 86-1 - CMP Order Info: [id number] - LIPID Order Info: [id number] - MG Order Info: 3015-3 - TSH Performed By: #### L 100.0100, L501.5200, L501.9520, L500.4100, L500.4050 #### [facility] [address] [place], [address] CA,Total 9.0 mg/dL Normal 8.5-10.1 [facility] Comment on above: Order Comment: Order Date: 02/19/23 Order Info: 86-1 - CMP Order Info: [id number] - LIPID Order Info: [id number] - MG Order Info: 3 - TSH Performed By: #### L 100.0100, L501.5200, L501.9520, L500.4100, L500.4050 #### [facility] [address] [place], [address] Chloride [Moles/Vol] 109 mmol/L High 98-107 [facility] Comment on above: Order Comment: Order Date: 02/19/23 Order Info: 86-1 - CMP Order Info: [id number] - LIPID Order Info: [id number] - MG Order Info: [id number] - TSH Performed By: #### L 100.0100, L501.5200, L501.9520, L500.4100, L500.4050 #### [facility] [address] [place], [address] CO2 [Moles/Vol] 21.0 mmol/L Normal 21.0-32.0 [facility] Comment on above: Order Comment: Order Date: 02/19/23 Order Info: [id number] - CMP Order Info: [id number] - LIPID Order Info: [id number] - MG Order Info: 3 - TSH Performed By: #### L 100.0100, L501.5200, L501.9520, L500.4100, L500.4050 #### [facility] [address] [place], [address] Creatinine [Mass/Vol] 0.98 mg/dL Normal 0.70-1.30 [facility] Comment on above: Order Comment: Order Date: 02/19/23 Order Info: [id number] - CMP Order Info: [id number] - LIPID Order Info: [id number] - MG Order Info: [id number] - TSH Result Comment: The validity of the calculated GFR GFRAA in patients over 70 years has not been determined. Clinical correlation is essential. Performed By: #### L 100.0100, L501.5200, L501.9520, L500.4100, L500.4050 #### [facility] [address] [place], [address] EST GFR - AA 105 mL/min Normal >60 [facility] Comment on above: Order Comment: Order Date: 02/19/23 Order Info: [id number] - CMP Order Info: [id number] - LIPID Order Info: [id number] - MG Order Info: [id number] - TSH Result Comment: Afri can [place] GFR Calc Performed By: #### L 100.0100, L501.5200, L501.9520, L500.4100, L500.4050 #### [facility] [address] [place], [address] GAP 8 Normal 5-15 [facility] Comment on above: Order Comment: Order Date: 02/19/23 Order Info: [id number] - CMP Order Info: [id number] - LIPID Order Info: [id number] - MG Order Info: [id number] - TSH Performed By: #### L 100.0100, L501.5200, L501.9520, L500.4100, L500.4050 #### [facility] [address] [place], [address] GFR/1.73 sq M.predicted among non-blacks MDRD (S/P/Bld) [Vol rate/Area] 87 mL/min/{1.73_m2} Normal >60 [facility] Comment on above: Order Comment: Order Date: 02/19/23 Order Info: [id number] - CMP Order Info: [id number] - LIPID Order Info: [id number] - MG Order Info: [id number] - TSH Result Comment: Non- GFR Calc Performed By: #### L 100.0100, L501.5200, L501.9520, L500.4100, L500.4050 #### [facility] [address] [place], [address] Globulin (S) [Mass/Vol] 3.7 g/dL Normal 2.2-4.2 [facility] Comment on above: Order Comment: Order Date: 02/19/23 Order Info: [id number] - CMP Order Info: [id number] - LIPID Order Info: [id number] - MG Order Info: [id number] - TSH Performed By: #### L 100.0100, L501.5200, L501.9520, L500.4100, L500.4050 #### [facility] [address] [place], [address] Glucose [Mass/Vol] 81 mg/dL Normal 74-106 [facility] Comment on above: Order Comment: Order Date: 02/19/23 Order Info: [id number] - CMP Order Info: [id number] - LIPID Order Info: [id number] - MG Order Info: [id number] - TSH Performed By: #### L 100.0100, L501.5200, L501.9520, L500.4100, L500.4050 #### [facility] [address] [place], [address] Potassium [Moles/Vol] 4.2 mmol/L Normal 3.5-5.1 [facility] Comment on above: Order Comment: Order Date: 02/19/23 Order Info: [id number] - CMP Order Info: [id number] - LIPID Order Info: [id number] - MG Order Info: [id number] - TSH Result Comment: Slig ht Hemolysis, Result may be falsely increased. Performed By: #### L 100.0100, L501.5200, L501.9520, L500.4100, L500.4050 #### [facility] [address] [place], [address] Sodium [Moles/Vol] 138 mmol/L Normal 136-145 [facility] Comment on above: Order Comment: Order Date: 02/19/23 Order Info: 86-1 - CMP Order Info: [id number] - LIPID Order Info: [id number] - MG Order Info: 3 - TSH Performed By: #### L 100.0100, L501.5200, L501.9520, L500.4100, L500.4050 #### [facility] [address] [place], [address] T PROT 7.6 g/dL Normal 6.4-8.2 [facility] Comment on above: Order Comment: Order Date: 02/19/23 Order Info: [id number] - CMP Order Info: - LIPID Order Info: [id number] - MG Order Info: [id number] - TSH Performed By: #### L 100.0100, L501.5200, L501.9520, L500.4100, L500.4050 #### [facility] [address] [place], [address] Urea nitrogen [Mass/Vol] 15 mg/dL Normal 7-18 [facility] Comment on above: Order Comment: Order Date: 02/19/23 Order Info: [id number] - CMP Order Info: [id number] - LIPID Order Info: [id number] - MG Order Info: 3 - TSH Performed By: #### L 100.0100, L501.5200, L501.9520, L500.4100, L500.4050 #### [facility] [address] [place], [address] Determination of erythrocyte mean corpuscular volume (MCV)Ordered By: Janak Porter on 02-19-2023 MCV (RBC) [Entitic vol] 98.6 fL 80-94 [facility] Hematocrit Auto (Bld) [Volum e fraction]Ordered By: Janak Porter on 02-19-2023 Hematocrit (Bld) [Volume fraction] 48.8 % 40-54 [facility] Ketones Test strip Ql (U)Ord ered By: Janak Porter on 02-19-2023 Ketones Ql (U) Negative Negative [facility] Laboratory - Chemistry and C hemistry - challengeOrdered By: Janak Porter on 02-19-2023 ALP [Catalytic activity/Vol] 115 U/L 45-117 [facility] ALT [Catalytic activity/Vol] 40 U/L 16-61 [facility] CO2 [Moles/Vol] 21.0 mmol/L 21.0-32.0 [facility] Globulin (S) [Mass/Vol] 3.7 g/dL 2.2-4.2 [facility] Magnesium [Mass/Vol] 2.4 mg/dL 1.6-2.6 [facility] Comment on above: Slight Hemolysis, Re sult may be falsely increased. Urea nitrogen/Creatinine [Mass ratio] 15.3 mg/mg 10-20 [facility] - Hematology and Cell countsOrdered By: Janak Porter on 02-19-2023 Erythrocyte distribution width (RBC) [Entitic vol] 47.7 fL 35.1-43.9 [facility] Erythrocyte distribution width (RBC) [Ratio] 13.2 % 11.6-14.6 [facility] Immature granulocytes/100 WBC (Bld) 0.200 % 0.0-0.9 [facility] Comment on above: IG% - Immature Granu locytes (promyelocytes, myelocytes and metamyelocytes) > 1% indicates that a LEFT SHIFT is Present. MCH (RBC) [Entitic mass] 31.9 pg 27.0-32.0 [facility] Nucleated RBC/100 WBC (Bld) [Ratio] 0 % 0-5 [facility] Lipid Profileon 02-19-2023 Cholesterol [Mass/Vol] 191 mg/dL Normal 200 [facility] Comment on above: Order Comment: Order Date: 02/19/23 Order Info: [id number] - CMP Order Info: [id number] - LIPID Order Info: [id number] - MG Order Info: [id number] - TSH Result Comment: <200 mg/dL Desirable 200-240 mg/dL Borderline >240 mg/dL High Risk Performed By: #### L 100.0100, L501.5200, L501.9520, L500.4100, L500.4050 #### [facility] [address] [place], [address] Cholesterol in HDL [Mass/Vol] 43 mg/dL Normal [facility] Comment on above: Order Comment: Order Date: 02/19/23 Order Info: [id number]- - CMP Order Info: [id number] - LIPID Order Info: [id number] - MG Order Info: [id number] - TSH Result Comment: The drugs N-Acetylcysteine and Metamizole may falsely depress this assay. Reference Range HDL <40 mg/dL Low HDL Cholesterol HDL >or= 60 mg/dL High HDL Cholesterol Performed By: #### L 100.0100, L501.5200, L501.9520, L500.4100, L500.4050 #### [facility] [address] [place], [address] Cholesterol in LDL [Mass/Vol] 116 mg/dL Normal 0-130 [facility] Comment on above: Order Comment: Order Date: 02/19/23 Order Info: [id number] - CMP Order Info: [id number] - LIPID Order Info: [id number] - MG Order Info: [id number] - TSH Performed By: #### L 100.0100, L501.5200, L501.9520, L500.4100, L500.4050 #### [facility] [address] [place], [address] Cholesterol in VLDL [Mass/Vol] 32 mg/dL Normal 5-40 [facility] Comment on above: Order Comment: Order Date: 02/19/23 Order Info: [id number] - CMP Order Info: - LIPID Order Info: [id number] - MG Order Info: [id number] - TSH Performed By: #### L 100.0100, L501.5200, L501.9520, L500.4100, L500.4050 #### [facility] [address] [place], [place], [address] Triglyceride [Mass/Vol] 162 mg/dL Normal [facility] Comment on above: Order Comment: Order Date: 02/19/23 Order Info: [id number] - CMP Order Info: - LIPID Order Info: [id number] - MG Order Info: [id number] - TSH Result Comment: The drugs N-Acetylcysteine and Metamizole may falsely depress this assay. Serum Triglycerides Reference Interval Normal <150 mg/dL Borderline high 150 - 199 mg/dL High 200 - 499 mg/dL Very High > or = 500 mg/dL Performed By: #### L 100.0100, L501.5200, L501.9520, L500.4100, L500.4050 #### [facility] [address] [place], [place], [address] MCHC Auto (RBC) [Mass/Vol]Or dered By: Janak Porter on 02-19-2023 MCHC (RBC) [Mass/Vol] 32.4 g/dL 32-36 [facility] Magnesiumon 02-19-2023 Magnesium [Mass/Vol] 2.4 mg/dL Normal 1.6-2.6 [facility] Comment on above: Order Comment: Order Date: 02/19/23 Order Info: [id number] - CMP Order Info: - LIPID Order Info: [id number] - MG Order Info: [id number] - TSH Result Comment: Slig ht Hemolysis, Result may be falsely increased. Performed By: #### L 100.0100, L501.5200, L501.9520, L500.4100, L500.4050 #### [facility] [address] [facility] [address] Mucus LM Ql (Urine sed)Order ed By: Janak Porter on 02-19-2023 Mucus Ql (Urine sed) 0 SEEN /hpf [facility] Nitrite Test strip Ql (U)Ord ered By: Janak Porter on 02-19-2023 Nitrite Ql (U) Negative Negative [facility] No Panel InformationOrdered By: Janak Porter on 02-19-2023 Estimated GFR (MDRD) Amer 105 mL/min >60 [facility] [place] Comment on above: GFR Calc Estimated GFR (MDRD) Non-Af Amer 87 mL/min >60 [facility] [place] Comment on above: Non- GFR Calc Thyroid Stimulating Hormone (TSH) 2.87 uIU/mL 0.358-3.74 [facility] [place] Platelets bldOrdered By: Sampson Porter on 02-19-2023 Platelets (Bld) [#/Vol] 210 10*3/uL 150-450 [facility] [place] Protein Test strip Ql (U)Ord ered By: Janak Porter on 02-19-2023 Protein Ql (U) Negative Negative [facility] [place] Serum or plasma albumin martha urement (mass/volume)Ordered By: Janak Porter on 02-19-2023 Albumin [Mass/Vol] 3.9 g/dL 3.2-5.0 [facility] Serum or plasma albumin/glob ulin mass ratioOrdered By: Janak Porter on 02-19-2023 Albumin/Globulin [Mass ratio] 1.1 {ratio} 0.9-2.4 [facility] [place] Serum or plasma calcium martha urement (mass/volume)Ordered By: Janak Porter on 02-19-2023 Calcium [Mass/Vol] 9.0 mg/dL 8.5-10.1 [facility] Serum or plasma cholesterol in HDL measurement (mass/volume)Ordered By: Janak Porter on 02-19-2023 Cholesterol in HDL [Mass/Vol] 43 mg/dL >40 [facility] [place] Comment on above: The drugs N-Acetylcy steine and Metamizole may falsely depress this assay. Reference Range HDL <40 mg/dL Low HDL Cholesterol HDL >or= 60 mg/dL High HDL Cholesterol Serum or plasma cholesterol in VLDL measurement (mass/volume)Ordered By: Janak Porter on 02-19-2023 Cholesterol in VLDL [Mass/Vol] 32 mg/dL 5-40 [facility] [place] Serum or plasma creatinine m easurement (mass/volume)Ordered By: Janak Porter on 02-19-2023 Creatinine [Mass/Vol] 0.98 mg/dL 0.70-1.30 [facility] Comment on above: The validity of the calculated GFR & GFRAA in patients over 70 years has not been determined. Clinical correlation is essential. Serum or plasma low density lipoprotein (LDL) cholesterol measurement (mass/volume)Ordered By: Janak Porter on 02-19-2023 Cholesterol in LDL [Mass/Vol] 116 mg/dL 0-130 [facility] [place] Serum or plasma urea nitroge n measurement (mass/volume)Ordered By: Janak Porter on 02-19-2023 Urea nitrogen [Mass/Vol] 15 mg/dL 7-18 [facility] [place] Squamous epithelial cells de tection in urine sediment by light microscopyOrdered By: Janak Porter on 02-19-2023 Epithelial cells.squamous LM Ql (Urine sed) 0 SEEN /hpf 0-5 [facility] [place] Thin prep Papanicolaou smear with manual screeningOrdered By: [facility] Thin prep Papanicolaou smear with manual screening 24 U/L 15-37 [facility] [place] Comment on above: Slight Hemolysis, Re sult may be falsely increased. Thin prep Papanicolaou smear with manual screening 8 5-15 [facility] [place] Thyroid Stim Hormone (TSH)on 02-19-2023 TSH 2.87 uIU/mL Normal 0.358-3.74 [facility] [place] Comment on above: Order Comment: Order Date: 02/19/23 Order Info: [id number] - CMP Order Info: [id number] - LIPID Order Info: [id number] - MG Order Info: [id number] - TSH Performed By: #### L 100.0100, L501.5200, L501.9520, L500.4100, L500.4050 #### [facility] [place] [facility] [address] [place], [address] Urinalysis, Completeon 02-19 BACTERIA 0 SEEN Normal None Seen [facility] [place] Comment on above: Order Comment: CLEAN CATCH Performed By: #### L 400.0001 #### [facility] [place] [facility] [address] [place], [address] EPI,SQUAMOUS 0 SEEN Normal 0-5 [facility] [place] Comment on above: Order Comment: CLEAN CATCH Performed By: #### L [id number] #### [facility] [place] [facility] [address] [place], [address] Mucus Ql (Urine sed) 0 SEEN Normal [facility] Comment on above: Order Comment: CLEAN CATCH Performed By: #### L [id number] #### [facility] [place] [facility] [address] [place], [address] RBC 0 SEEN Normal 0-5 [facility] [place] Comment on above: Order Comment: CLEAN CATCH Performed By: #### L [id number] #### [facility] [place] [facility] [address] [place], [address] WBC 0 SEEN Normal 0-5 [facility] [place] Comment on above: Order Comment: CLEAN CATCH Performed By: #### L [id number] #### [facility] [place] [facility] [address] [place], [address] Urine blood detectionOrdered By: Janak Porter on 02-19-2023 RBC Ql (U) Negative Negative [facility] [place] RBC Ql (U) 0 SEEN /hpf 0-5 [facility] [place] Urine clarityOrdered By: Sampson Porter on 02-19-2023 Clarity (U) Clear Clear [facility] [place] Urine color determinationOrd ered By: Janak Porter on 02-19-2023 Color (U) Yellow Yellow [facility] [place] Urine glucose detectionOrder ed By: Janak Porter on 02-19-2023 Glucose Ql (U) Normal mg/dl Normal [facility] [place] Urine leukocyte esterase det ection by dipstickOrdered By: Janak Porter on 02-19-2023 Leukocyte esterase Test strip Ql (U) Negative Negative [facility] [place] Urine pHOrdered By: Janak lee on 02-19-2023 pH (U) 6.0 [pH] 5.0 - 8.0 [facility] [place] Urine sediment bacteria coun t by microscopy (number/high power field)Ordered By: Janak Porter on 02-19-2023 Bacteria LM.HPF (Urine sed) [#/Area] 0 /[HPF] None Seen [facility] [place] Urine specific gravity measu rementOrdered By: Janak Porter on 02-19-2023 Specific gravity (U) [Rel density] 1.015 1.002-1.03 0 [facility] [place] Urobilinogen Auto test strip Ql (U)Ordered By: Janak Porter on 02-19-2023 Urobilinogen Ql (U) Normal mg/dl Normal [facility] MRI KNEE W/O CONTRAST LEFTon 01-17-2022 MRI KNEE W/O CONTRAST LEFT ORIGINAL EXAMINATION: MRI OF THE LEFT KNEE WITHOUT PNCGRAEE83/1/2022 10:49 am TECHNIQUE: Multiplanar multisequence MRI of the left knee was performed without the administration of intravenous contrast. COMPARISON: None HISTORY: ORDERING SYSTEM PROVIDED HISTORY: Reason for Exam: PAIN IN LEFT KNEE FINDINGS: MUSCLES, TENDONS, AND LIGAMENTS: The anterior cruciate ligament is intact. The posterior cruciate ligament is intact. There is periligamentous edema of the medial collateral ligament without intrinsic signal changes or evidence of discontinuity. The lateral collateral ligament complex is intact. The popliteus and biceps femoris tendons, iliotibial band, and extensor mechanism are intact. Postsurgical changes are at the insertion site of the quadriceps tendon. Magic angle artifact noted of the patellar tendon. MENISCI: The medial meniscus is intact. The lateral meniscus is intact. OSSEOUS STRUCTURES AND JOINTS: No fracture or dislocation is evident. No visualized marrow replacing osseous lesions. There is low-grade cartilage thinning and irregularity of the medial and lateral facets of the patella. There is high-grade thinning of the lateral femoral trochlear cartilage, best appreciated on series 11, image 18/38. Trace volume effusion. SOFT TISSUES: Ruptured Shore cyst noted. IMPRESSION: 1. Low-grade MCL sprain. 2. High-grade thinning of the lateral femoral trochlear cartilage. Low-grade thinning of the mediolateral facets of the patella. 3. Postsurgical changes of the quadriceps tendon insertional site. I have personally reviewed the images of this examination, agree with resident's findings and interpretation. Interpreted by: Fer Mckeon DO Preliminary Report By: Jayant Antonio Electronically signed By Fer Mckeon DO Dictated Date: 01/17/2022 11:05:52 AM Prelim Date: 01/17/2022 3:11:33 PM Sign Date: 01/17/2022 3:11:33 PM Ordering Provider: MUNIRA CEDEÑO [facility] ([place]) No Panel Informationon 11-27 Miscellaneous Test See comment [facility] Work [facility]: Comment on above: TEST RESULT LIMITSBe ta-2 Transferrin Not DetectedInsufficient sample to concentrate to desired 10X concentration.Sensitivity of assay may be compromised.INTERPRETIVE INFORMATION: Beta-2 TransferrinDetection of a beta-2 transferrin band by TED is diagnostic for the presence of cerebrospinal fluid (CSF). This test is useful in the differential diagnosis for CSF otorrhea or CSF rhinorrhea.Beta-2 transferrin is not detected by this methodology in normal serum, tears, saliva, sputum, nasal, or aural fluid.This test was developed and its performance characteristicsdetermined by [employer]. It has not been cleared orapproved by the [place] Food and Drug Administration. This test was performed in a CLIA certified laboratory and is intended for clinical purposes. __ TESTING PERFORMED AT [facility]. ORIGINAL REPORT ON FILE IN LAB CONTAINS ADDITIONAL TEST SITE INFORMATION. Basophil percentageon 2021 Cholesterol [Mass/Vol] 259 mg/dL <200 [facility] [place] Work Phone: Comment on above: <200 mg/dL Desirable 200-240 mg/dL Borderline >240 mg/dL High Risk Triglyceride [Mass/Vol] 288 mg/dL <199 [facility] [place] Work Phone: Comment on above: The drugs N-Acetylcy steine and Metamizole may falsely depress this assay.Serum Triglycerides Reference Interval Normal <150 mg/dL Borderline high 150 - 199 mg/dL High 200 - 499 mg/dL Very High > or = 500 mg/dL Cytology report of Body flui d Cyto stainon 08-23-2021 Cytology report Cyto stain Doc (Body fld) SEE PATHOLOGY REPORT [facility] Work Phone: Comment on above: Specimen submitted t o Anatomical Pathology Department for testing. Serum or plasma cholesterol in HDL measurement (mass/volume)on 08-23-2021 Cholesterol in HDL [Mass/Vol] 38 mg/dL >40 [facility] [place] Work Phone: Comment on above: The drugs N-Acetylcy steine and Metamizole may falsely depress this assay. Reference Range HDL <40 mg/dL Low HDL Cholesterol HDL >or= 60 mg/dL High HDL Cholesterol Serum or plasma cholesterol in VLDL measurement (mass/volume)on 08-23-2021 Cholesterol in VLDL [Mass/Vol] 58 mg/dL 5-40 [facility] [place] Work Phone: Serum or plasma low density lipoprotein (LDL) cholesterol measurement (mass/volume)on 08-23-2021 Cholesterol in LDL [Mass/Vol] 163 mg/dL 0-130 [facility] [place] Work Phone: Absolute lymphocyte counton 08-15-2021 Lymphocytes Auto (Unsp spec) [#/Vol] 2.12 10*3/uL 0.83-4.51 [facility] [place] Work Phone: Basophil percentageon 2021 Basophil percentage 0 SEEN /hpf 0-5 [facility] Work Phone: Basophil percentage See comment [facility] Work Phone: Comment on above: TEST RESULT LIMITSTe stosterone, Free/Tot EquilibTestosterone 377 ng/dL [id number] male reference interval is based on a population ofhealthy nonobese males (BMI <30) between 19 and 39 years old.Travison, et.al. JCEM 2017,102;0875-2922. PMID: [id number].Testosterone,Free 5.00-21.00Unable to calculate result since non-numeric result obtained for component test.% Free Testosterone 1.50-4.20Test not performed. Specimen is grossly lipemic. _ TESTING PERFORMED AT [facility]. ORIGINAL REPORT ON FILE IN LAB CONTAINS ADDITIONAL TEST SITE INFORMATION. Basophils/100 WBC (Bld) 0.4 % 0-1 [facility] [place] Work Phone: Bilirubin [Mass/Vol] 0.30 mg/dL 0.20-1.00 [facility] Work Phone: Comment on above: For patients on eltr ombopag therapy, use of [place] TBIL is not recommended. Chloride [Moles/Vol] 107 mmol/L 98-107 [facility] Work Phone: Cholesterol [Mass/Vol] 247 mg/dL <200 [facility] [place] Work Phone: Comment on above: <200 mg/dL Desirable 200-240 mg/dL Borderline >240 mg/dL High Risk Eosinophils/100 WBC (Bld) 2.1 % 0-5 [facility] [place] Work Phone: Glucose [Mass/Vol] 100 mg/dL 74-106 [facility] Work Phone: Comment on above: Fasting Glucose resu lt from 100 to 125 mg/dL suggests IMPAIRED HOMEOSTASIS per A.D.A. criteria. Neutrophils (Bld) [#/Vol] 5.6 10*3/uL 2.0-7.7 [facility] [place] Work Phone: Neutrophils/100 WBC (Bld) 62.3 % 47-70 [facility] [place] Work Phone: Potassium [Moles/Vol] 3.7 mmol/L 3.5-5.1 [facility] Work Phone: Protein [Mass/Vol] 7.4 g/dL 6.4-8.2 [facility] Work Phone: Sodium [Moles/Vol] 137 mmol/L 136-145 [facility] Work Phone: Triglyceride [Mass/Vol] 649 mg/dL <199 [facility] [place] Work Phone: Comment on above: TRIGLYCERIDE IS GREA TER THAN 400 mg/dL. LDL RESULT IS INVALID AND WILL NOT BE REPORTED.Previous reported result: > 1000 mg/dLEdited by: DANITZA on 08/16/21:0744 AMENDED REPORT 08/16/21 0744 TRIG previously reported as: > 1000 H mg/dL The drugs N-Acetylcysteine and Metamizole may falsely depress this assay.Serum Triglycerides Reference Interval Normal <150 mg/dL Borderline high 150 - 199 mg/dL High 200 - 499 mg/dL Very High > or = 500 mg/dL WBC (Bld) [#/Vol] 9.1 10*3/uL 4.4-11.0 [facility] Work Phone: Bilirubin Test strip Ql (U)o n 08-15-2021 Bilirubin Ql (U) Negative Negative [facility] [place] Work Phone: Blood erythrocytes count (nu mber/volume)on 08-15-2021 RBC (Bld) [#/Vol] 4.92 10*6/uL 4.6-6.2 [facility] Work Phone: Blood hemoglobin measurement (mass/volume)on 08-15-2021 Hemoglobin (Bld) [Mass/Vol] 15.9 g/dL 13.0-16.5 [facility] [place] Work Phone: Blood lymphocytes/100 leukoc yteson 08-15-2021 Lymphocytes/100 WBC (Bld) 23.4 % 19-41 [facility] [place] Work Phone: Blood monocytes/100 leukocyt eson 08-15-2021 Monocytes/100 WBC (Bld) 11.5 % 0-10 [facility] [place] Work Phone: Blood platelet mean volumeon 08-15-2021 Platelet mean volume (Bld) [Entitic vol] 11.8 fL 6.2-12.0 [facility] [place] Work Phone: Determination of erythrocyte mean corpuscular volume (MCV)on 08-15-2021 MCV (RBC) [Entitic vol] 99.6 fL 80-94 [facility] [place] Work Phone: Free testosterone percentage on 08-15-2021 Testosterone Free/Testosterone.tot al [Mass fraction] Not Reportable [facility] [place] Work Phone: Hematocrit Auto (Bld) [Volum e fraction]on 08-15-2021 Hematocrit (Bld) [Volume fraction] 49.0 % 40-54 [facility] [place] Work Phone: Ketones Test strip Ql (U)on 08-15-2021 Ketones Ql (U) Negative Negative [facility] [place] Work Phone: Laboratory - Chemistry and C hemistry - challengeon 08-15-2021 ALP [Catalytic activity/Vol] 122 U/L 45-117 [facility] [place] Work Phone: ALT [Catalytic activity/Vol] 55 U/L 16-61 [facility] [place] Work Phone: CO2 [Moles/Vol] 21.0 mmol/L 21.0-32.0 [facility] [place] Work Phone: Globulin (S) [Mass/Vol] 3.8 g/dL 2.2-4.2 [facility] [place] Work Phone: Urea nitrogen/Creatinine [Mass ratio] 16.4 mg/mg 10-20 [facility] [place] Work Phone: Laboratory - Hematology and Cell countson 08-15-2021 Erythrocyte distribution width (RBC) [Entitic vol] 46.0 fL 35.1-43.9 [facility] [place] Work Phone: Erythrocyte distribution width (RBC) [Ratio] 12.5 % 11.6-14.6 [facility] [place] Work Phone: Immature granulocytes/100 WBC (Bld) 0.300 % 0.0-0.9 [facility] [place] Work Phone: Comment on above: IG% - Immature Granu locytes (promyelocytes, myelocytes and metamyelocytes) > 1% indicates that a LEFT SHIFT is Present. MCH (RBC) [Entitic mass] 32.3 pg 27.0-32.0 [facility] [place] Work Phone: Nucleated RBC/100 WBC (Bld) [Ratio] 0 % 0-5 [facility] [place] Work Phone: MCHC Auto (RBC) [Mass/Vol]on 08-15-2021 MCHC (RBC) [Mass/Vol] 32.4 g/dL 32-36 [facility] Work Phone: Mucus LM Ql (Urine sed)on Mucus Ql (Urine sed) 0 SEEN /hpf [facility] Work Phone: Nitrite Test strip Ql (U)on 08-15-2021 Nitrite Ql (U) Negative Negative [facility] [place] Work Phone: No Panel Informationon 08-15 Estimated GFR (MDRD) Amer 93 mL/min >60 [facility] [place] Work Phone: Comment on above: GFR CalcPrevious reported result: 93 mL/minEdited by: GUME on 08/16/21:0653 AMENDED REPORT 08/16/21 0653 EST GFR - AA previously reported as: 93 mL/min Estimated GFR (MDRD) Non-Af Amer 77 mL/min >60 [facility] [place] Work Phone: Comment on above: Non- GFR CalcPrevious reported result: 77 mL/minEdited by: AUTOINS on 08/16/21:0653 AMENDED REPORT 08/16/21652 EST GFR previously reported as: 77 mL/min Thyroid Stimulating Hormone (TSH) 3.25 uIU/mL 0.358-3.74 [facility] [place] Work Phone: Platelets bldon 08-15-2021 Platelets (Bld) [#/Vol] 188 10*3/uL 150-450 [facility] [place] Work Phone: Protein Test strip Ql (U)on 08-15-2021 Protein Ql (U) 15 mg/dl Negative [facility] [place] Work Phone: Serum or plasma albumin martha urement (mass/volume)on 08-15-2021 Albumin [Mass/Vol] 3.6 g/dL 3.2-5.0 [facility] Work Phone: Serum or plasma albumin/glob ulin mass ratioon 08-15-2021 Albumin/Globulin [Mass ratio] 0.9 {ratio} 0.9-2.4 [facility] [place] Work Phone: Serum or plasma calcium martha urement (mass/volume)on 08-15-2021 Calcium [Mass/Vol] 8.9 mg/dL 8.5-10.1 [facility] Work Phone: Serum or plasma cholesterol in HDL measurement (mass/volume)on 08-15-2021 Cholesterol in HDL [Mass/Vol] 32 mg/dL >40 [facility] [place] Work Phone: Comment on above: The drugs N-Acetylcy steine and Metamizole may falsely depress this assay. Reference Range HDL <40 mg/dL Low HDL Cholesterol HDL >or= 60 mg/dL High HDL Cholesterol Serum or plasma cholesterol in VLDL measurement (mass/volume)on 08-15-2021 Cholesterol in VLDL [Mass/Vol] 130 mg/dL 5-40 [facility] [place] Work Phone: Comment on above: Previous reported re sult: 200 mg/dLEdited by: AUTOINS on 08/16/21:0653 AMENDED REPORT 08/16/21 0653 VLDL previously reported as: 200 H mg/dL Previous reported result: TNP mg/dLEdited by: DANITZA on 08/16/21:0745 AMENDED REPORT 08/16/21 0745 VLDL previously reported as: Test not performed mg/dL Serum or plasma creatinine m easurement (mass/volume)on 08-15-2021 Creatinine [Mass/Vol] 1.10 mg/dL 0.70-1.30 [facility] Work Phone: Comment on above: The validity of the calculated GFR & GFRAA in patients over 70 years has not been determined. Clinical correlation is essential. Serum or plasma low density lipoprotein (LDL) cholesterol measurement (mass/volume)on 08-15-2021 Cholesterol in LDL [Mass/Vol] TNP [facility] [place] Work Phone: Comment on above: Test not performed Serum or plasma testosterone free measurement (mass/volume)on 08-15-2021 Testosterone Free [Mass/Vol] Not Reportable [facility] [place] Work Phone: Serum or plasma urea nitroge n measurement (mass/volume)on 08-15-2021 Urea nitrogen [Mass/Vol] 18 mg/dL 7-18 [facility] [place] Work Phone: Squamous epithelial cells de tection in urine sediment by light microscopyon 08-15-2021 Epithelial cells.squamous LM Ql (Urine sed) 0 SEEN /hpf 0-5 [facility] [place] Work Phone: Thin prep Papanicolaou smear with manual screeningon 08-15-2021 Thin prep Papanicolaou smear with manual screening 30 U/L 15-37 [facility] [place] Work Phone: Thin prep Papanicolaou smear with manual screening 9 5-15 [facility] [place] Work Phone: Urine blood detectionon 07-19 RBC Ql (U) 10 /ul Negative [facility] [place] Work Phone: RBC Ql (U) 5-10 SEEN /hpf 0-5 [facility] [place] Work Phone: Urine clarityon 08-15-2021 Clarity (U) Clear Clear [facility] [place] Work Phone: Urine color determinationon 08-15-2021 Color (U) Yellow Yellow [facility] [place] Work Phone: Urine glucose detectionon Glucose Ql (U) Normal mg/dl Normal [facility] [place] Work Phone: Urine leukocyte esterase det ection by dipstickon 08-15-2021 Leukocyte esterase Test strip Ql (U) 25 /ul Negative [facility] [place] Work Phone: Urine pHon 08-15-2021 pH (U) 7.0 [pH] 5.0 - 8.0 [facility] [place] Work Phone: Urine sediment bacteria coun t by microscopy (number/high power field)on 08-15-2021 Bacteria LM.HPF (Urine sed) [#/Area] 1 /[HPF] None Seen [facility] [place] Work Phone: Urine specific gravity measu rementon 08-15-2021 Specific gravity (U) [Rel density] 1.010 1.002-1.03 0 [facility] [place] Work Phone: Urobilinogen Auto test strip Ql (U)on 08-15-2021 Urobilinogen Ql (U) Normal mg/dl Normal [facility] Work Phone: Provider Note - ED v3on 12- Provider Note - ED v3 Provider Note: Chart Review: ED NOTES ED NOTES: Presents for evaluation of URI. Symptoms including cough, congestion, body aches, malaise, and headache have been present for the past 2 weeks and refractory to OTC meds. Pt states approximately a month ago he had the same symptoms and was treated after a 1.5-2 weeks with antibiotics that he does not know the name of that did not clear his symptoms completely but did help improve them. No fever, chills, loss of taste/smell, nausea, vomiting, abdominal pain, CP, or SOB. No exacerbating factors. No known COVID 19 exposure. Denies COVID 19 testing. HISTORY OF PRESENTING ILLNESS NADEGE is a 45 year old Male and was seen by me at 26-Jan-2021 14:02. Triage Information: Most recent Vital Sign Value Date PAST MEDICAL HISTORY ALLERGIES/INTOLERANCES: No Known Allergies HEALTH HISTORY: No documented data. OUTPATIENT MEDICATIONS: Home Medications Review Status for Reconciliation: Incomplete Med Status: Patient Currently Takes Medications Drug Name: amoxicillin-clavulanate 875 mg-125 mg oral tablet Instructions: 1 tab(s) orally 2 times a day SIGNIFICANT EVENTS: Past Medical History Description:seizure diosorders Social/Behavioral Description:current smoker and alcohol REVIEW OF SYSTEMS All other systems reviewed and are negative REVIEW OF SYSTEMS: Comments See HPI PHYSICAL EXAM CONSTITUTIONAL: Dull nasal voice, well nourished, awake, alert, oriented to person, place, time/situation and in no apparent distress. HENMT: Airway patent, ears with clear tympanic membranes bilaterally. Nasal mucosa clear. Mouth with normal mucosa. Throat has no vesicles, no oropharyngeal exudates and uvula is midline. Face with no lymph node enlargement. EYES: Clear bilaterally, pupils equal, round and reactive to light. CARDIOVASCULAR: Normal rate, regular rhythm. Heart sounds S1, S2. No murmurs, rubs or gallops. PMI non-displaced. RESPIRATORY: Breath sounds clear and equal bilaterally. NEUROLOGICAL: Alert and oriented, no focal deficits, no motor or sensory deficits. SKIN: Skin normal color for race, warm, dry and intact. No evidence of trauma. PSYCHIATRIC: Alert and oriented to person, place, time/situation. normal mood and affect. No apparent risk to self or others. CRITICAL CARE VITAL SIGNS: T PRBP SpO2O2(LPM) %FiO2 Method 26-Jan-2021 13:55:[id number]/94 94 MDM MDM/ED COURSE: Rx Augmentin. Patient's clinical presentation is otherwise unremarkable at this time. Patient is discharged with instructions to follow-up with primary care or seek emergency medical attention for worsening symptoms or any new concerns. DISPOSITION Diagnosis/Annotation: ED Dx Name:Acute sinusitis Code:J01.90 Disposition: discharged Type: home CONSULT CRITICAL CARE TIME Is this a critically ill patient: no Electronic Signatures: Cj Jain (AGRICULTURAL RESEARCH TECHNOLOGIST-WELL DRILL OPERATOR) (Signed 26-Jan-2021 15:02) Authored: ED Notes, HPI, PMH, ROS, PE, Results/Vital Signs, MDM/ED Course, Clinical Impression, Attestation, Chart Review, Scores Last Updated: 26-Jan-2021 15:02 by Cj Jain (AGRICULTURAL RESEARCH TECHNOLOGIST-WELL DRILL OPERATOR) Normal [facility] CBC With Differentialon 08-3 CBC Manual Diff NO Normal [facility] Comment on above: Performed By: #### C BCD #### [address] [id number] , Moses Coon M.D. FCAP, FASCP Basophils (Bld) [#/Vol] 0.03 10:3/uL Normal 0.01-0.2 [facility] Comment on above: Performed By: #### C BCD #### [address] [id number] , Moses Coon M.D. FCAP, FASCP Basophils/100 WBC (Bld) 0.4 % Normal 0-1.0 [facility] Comment on above: Performed By: #### C BCD #### [address] [id number] , Moses Coon M.D. FCAP, FASCP Eosinophils (Bld) [#/Vol] 0.20 10:3/uL Normal 0-0.5 [facility] Comment on above: Performed By: #### C BCD #### [address] [address] , Moses Coon M.D. FCAP, FASCP Hematocrit (Bld) [Volume fraction] 51.1 % Normal 40.0-52.0 [facility] Comment on above: Performed By: #### C BCD #### [address] [id number] , Moses Coon M.D. FCAP, FASCP Hemoglobin (Bld) [Mass/Vol] 16.5 g/dL Normal 13.3-17.7 [facility] Comment on above: Performed By: #### C BCD #### [address] [id number] , Moses Coon M.D. FCAP, FASCP [id number] 0 /100WBC Normal -0 [facility] Comment on above: Performed By: #### C BCD #### [address] [address] , Moses Coon M.D. FCAP, FASCP [id number] 0.73 10:3/uL Normal 0.2-0.8 [facility] Comment on above: Performed By: #### C BCD #### [address] [id number] , Moses Coon M.D. FCAP, FASCP [id number] 5.86 10:3/uL Normal 2.0-7.0 [facility] Comment on above: Performed By: #### C JOSEPHINED #### [address] [address] , Jason PinkAP, FASCP [id number] 8.8 % Normal 4.0-10.0 [facility] Comment on above: Performed By: #### C BCD #### [address] [address] , Moses Coon M.D. FCAP, FASCP [id number] 2.4 % Normal 1.0-3.0 [facility] Comment on above: Performed By: #### C BCD #### [address] [id number] , Moses Coon M.D. FCAP, FASCP Lymphocytes (Bld) [#/Vol] 1.49 10:3/uL Low 1.5-4.0 [facility] Comment on above: Performed By: #### C BCDileep #### [address] [id number] , Moses Coon M.D. FCAP, FASCP Lymphocytes/100 WBC (Bld) 17.9 % Low 20.0-40.0 [facility] Comment on above: Performed By: #### C BCDileep #### [address] [id number] , Moses Coon M.D. FCAP, FASCP MCH (RBC) [Entitic mass] 32.6 pg Normal 27.0-40.0 [facility] Comment on above: Performed By: #### C BCDileep #### [address] [id number] , Moses Coon M.D. FCAP, FASCP MCV (RBC) [Entitic vol] 101.0 CU uM High 80.0-100.0 [facility] Comment on above: Performed By: #### C VERONICA #### [address] [id number] , Moses Coon M.D. FCAP, FASCP Mean Corpusc Hgb Concentration 32.3 G/DL Normal 31.0-36.0 [facility] Comment on above: Performed By: #### C BCDileep #### [address] 9408750 , Moses Coon M.D. FCAP, FASCP Neutrophils/100 WBC (Bld) 70.4 % High 54.0-62.0 [facility] Comment on above: Performed By: #### C BCDileep #### [address] [id number] , Moses J. Macatol, M.D. FCAP, FASCP Nucleated RBC (Bld) [#/Vol] 0 10:3/uL Normal -0 [facility] Comment on above: Performed By: #### C BCD #### [address] [address] , Moses Coon M.D. FCAP, FASCP Platelets (Bld) [#/Vol] 183 10:3/uL Normal 130-440 [facility] Comment on above: Performed By: #### C BCD #### [address] [address] , Moses Coon M.D. FCAP, FASCP RBC (Bld) [#/Vol] 5.06 10:6/uL Normal 4.40-5.90 [facility] Comment on above: Performed By: #### C BCD #### [address] [address] , Moses Coon M.D. FCAP, FASCP Red Cell Distribution 12.7 Normal 11.5-14.5 [facility] Comment on above: Performed By: #### C BCD #### [address] [address] , Moses Coon M.D. FCAP, FASCP WBC (Bld) [#/Vol] 8.3 10:3/uL Normal 3.9-10.6 [facility] Comment on above: Performed By: #### C BCD #### [address] [address] , Moses Coon M.D. FCAP, FASCP Comprehensive Metabolic Pane stevie 10-16-2018 Albumin [Mass/Vol] 4.5 g/dL Normal 4.0-4.9 [facility] Comment on above: Performed By: #### A DP, CP1 #### [address] [place] [id number] , Moses Coon M.D. FCAP, FASCP ALP [Catalytic activity/Vol] 112 U/L Normal 40-129 [facility] Comment on above: Performed By: #### A ANKIT REYES1 #### [address] [address] , Moses Coon M.D. FCAP, FASCP ALT Alanine Transamine 41 U/L Normal 5-41 [facility] Comment on above: Performed By: #### A ANKIT REYES1 #### [address] [address] , Moses Coon M.D. FCAP, FASCP Anion gap [Moles/Vol] 15 mmol/L Normal 9-15 [facility] Comment on above: Performed By: #### A ANKIT REYES1 #### [address] [address] , Jason PinkAP, FASCP AST Aspartate Transaminase 29 U/L Normal 5-40 [facility] Comment on above: Performed By: #### A AMY, ANKIT1 #### [address] [address] , Jason PinkAP, FASCP Bilirubin [Mass/Vol] 0.4 mg/dL Normal 0.2-1.2 [facility] Comment on above: Performed By: #### A AMY, CP1 #### [address] [address] , Jason PinkAP, FASCP Calcium [Mass/Vol] 9.4 mg/dL Normal 8.6-10.0 [facility] Comment on above: Performed By: #### A AMY, CP1 #### [address] [place] [address] , Moses Coon M.D. FCAP, FASCP Chloride [Moles/Vol] 101 mmol/L Normal 98-107 [facility] Comment on above: Performed By: #### A AMY, CP1 #### [address] [address] , Moses Coon M.D. FCAP, FASCP Creatinine [Mass/Vol] 0.98 mg/dL Normal 0.67-1.17 [facility] Comment on above: Performed By: #### A AMY, ANKIT1 #### [address] [address] , Jason PinkAP, FASCP GFR/1.73 sq M.predicted MDRD (S/P/Bld) [Vol rate/Area] mL/min/{1.73_m2} Normal [facility] Comment on above: Result Comment: THE GFR IS ESTIMATED USING THE MDRD STUDY EQUATION. *NOTE* IF THE RACE OF THE PATIENT WAS UNKNOWN AT THE TIME OF REGISTRATION, AND THE PATIENT IS , MULTIPLY THE EGFR RESULT PROVIDED BY 1.21. NORMAL: EGFR >60.0 Performed By: #### A AMY, CP1 #### [address] [address] , Moses Coon M.D. FCAP, FASCP Glucose [Mass/Vol] 91 mg/dL Normal 70-100 [facility] Comment on above: Result Comment: INTR EPRETATION FOR FASTING BLOOD GLUCOSE: 70-100 mg/dl NORMAL GLUCOSE TOLERANCE 100-125 mg/dl IMPAIRED FASTING GLUCOSE (PRE-DIABETES) >125 mg/dl DIABETES - ON MORE THAN ONE TESTING Performed By: #### A AMY, CP1 #### [address] [address] , Moses Coon M.D. FCAP, FASCP Potassium [Moles/Vol] 4.8 mmol/L Normal 3.6-5.0 [facility] Comment on above: Performed By: #### A ANKIT REYES1 #### [address] [id number] , Moses Coon M.D. FCAP, FASCP Protein [Mass/Vol] 7.5 g/dL Normal 6.4-8.3 [facility] Comment on above: Performed By: #### A AMY, CP1 #### [address] 9894750 , Moses Coon M.D. FCAP, FASCP Sodium [Moles/Vol] 139 mmol/L Normal 136-145 [facility] Comment on above: Performed By: #### A ANKIT REYES1 #### [address] 2343250 , Jason PinkAP, FASCP Total CO2 23 MMOL/L Normal 22-29 [facility] Comment on above: Performed By: #### A ANKIT REYES1 #### [address] [id number] , Jason PinkAP, FASCP Urea nitrogen [Mass/Vol] 16.9 mg/dL Normal 6.0-20.0 [facility] Comment on above: Performed By: #### A AMY CP1 #### [address] 0148850 , Moses Coon M.D. FCAP, FASCP Lipid Profile Fastingon 08-3 0-2018 Cholesterol [Mass/Vol] 199 mg/dL Normal 0-199 [facility] Comment on above: Performed By: #### A AMY, CP1 #### [address] 9877050 , MosesJason Porras, FASCP HDL Cholesterol Fasting 48 mg/dL Low >55 [facility] Comment on above: Performed By: #### A KAMAR REYES #### [address] 0125550 , Jason PinkAP, FASCP LDL Cholesterol (CALC) Fasting 129 mg/dL High <100 [facility] Comment on above: Performed By: #### A ANKIT REYES1 #### [address] [id number] , Jason PinkAP, FASCP Risk Ratio Fasting 4.15 Normal [facility] Comment on above: Result Comment: RISK NORMALS MEN WOMEN 1/[address] 23[address]39 11.04 TRIGLYCERIDES >400 MG/DL MAY CAUSE INCONSISTENCIES IN THE LDL. Performed By: #### A KAMAR REYES #### [address] [id number] , Jason Pink, FASCP Triglycerides Fasting 108 mg/dL Normal <150 [facility] Comment on above: Performed By: #### A KAMAR REYES #### [address] [address] , Jason Pink, FASCP COMPREHENSIVE METABOLIC PANE Stevie 08-13-2017 Albumin 4.3 g/dL Normal 3.9-5.0 [facility] Comment on above: Performed By: #### C MP ####Main Lab - [id number] [place], [place] [address] Albumin/Globulin Ratio 1.4 {ratio} Normal 1.1-1.8 [facility] Comment on above: Performed By: #### C MP ####Main Lab - [id number] [place], [place] [address] Alkaline phosphatase (ALP) 96 U/L Normal 43-122 [facility] Comment on above: Performed By: #### C MP ####Main Lab - [place] [id number] ALT/SGPT 29 U/L Normal 7-56 [facility] Comment on above: Performed By: #### C MP ####Main Lab - [id number] [place] [address] Anion gap 14 mmol/L Normal 9-18 [facility] Comment on above: Performed By: #### C MP ####Main Lab - [id number] [place] [address] AST/SGOT 27 U/L Normal 14-50 [facility] Comment on above: Result Comment: Spec imen Slightly Hemolyzed. Performed By: #### C MP ####Main Lab - [place] [address] Bilirubin (total) 0.5 mg/dL Normal 0.2-1.3 [facility] Comment on above: Performed By: #### C MP ####Main [facility] - [place] [address] BUN (urea nitrogen) 15 mg/dL Normal 7-21 [facility] Comment on above: Performed By: #### C MP ####Main Lab - [place] [address] BUN/Creatinine Ratio 15.2 Ratio Normal 5.0-42.0 [facility] Comment on above: Performed By: #### C MP ####Main Lab - [place] [address] Calcium 9.6 mg/dL Normal 8.4-10.2 [facility] Comment on above: Performed By: #### C MP ####Main Lab - [place] [address] Chloride 103 mmol/L Normal 98-107 [facility] Comment on above: Performed By: #### C MP ####Main Lab - [place] [address] CO2 24 mmol/L Normal 22-31 [facility] Comment on above: Performed By: #### C MP ####Main Lab - [id number] [place] [phone] Creatinine 0.99 mg/dL Normal 0.80-1.30 [facility] Comment on above: Performed By: #### C MP ####Main Lab - [id number] [place] [phone] eGFR (non-black) mL/min/{1.73_m2} Normal [facility] Comment on above: Performed By: #### C MP ####Main Lab - [id number] [place] [address] Globulin 3.0 g/dL Normal [facility] Comment on above: Performed By: #### C MP ####Main Lab - [id number] [place] 1492573 Glucose mass conc 96 mg/dL Normal 70-99 [facility] Comment on above: Result Comment: The glucose range is based on recommendations from theAmerican Diabetes Association for fasting blood glucoserange. Performed By: #### C MP ####Main Lab - [id number] [place] 1492573 Potassium molar conc 4.9 mmol/L Normal 3.6-5.0 [facility] Comment on above: Result Comment: Spec imen Slightly Hemolyzed. Performed By: #### C MP ####Main Lab - [id number] [place] 1492573 Protein 7.3 g/dL Normal 6.3-8.2 [facility] Comment on above: Performed By: #### C MP ####Main Lab - [id number] [place] 1492573 Sodium 136 mmol/L Low 137-145 [facility] Comment on above: Performed By: #### C MP ####Main Lab - [id number] [place] 1492573 Age 41 Years Normal [facility] Comment on above: Performed By: #### C MP ####Main Lab - [id number] [place] 1492573 PERSONAL HISTORY AND PHYSICA Stevie 11-20-2016 PERSONAL HISTORY AND PHYSICAL [address] [place] [address] PERSONAL HISTORY AND PHYSICAL : [id number] Signed Name: NADEGE HILLS MRUN: [id number] : 1975 Loc: ENDO Age / Sex: 40/ M Adm Status: PRE [facility] [place] Adm Date:11/20/16 Room/Bed: DATE: 11/20/2016. CHIEF COMPLAINT: Epigastric pain, diarrhea. HISTORY OF PRESENT ILLNESS: Nadege is a 40-year-old gentleman who states that about 2 months ago he was feeling well prior to that time, but then developed some pain within the abdomen, primarily in the epigastric region. He described it as a dull, cramping sensation. His biggest complaint was, however, he developed severe diarrhea for where he was having 20-30 loose watery stools a day. In the last 2 months, he had about a 25 pound weight loss. He also had a decreased appetite. He just felt very weak and frail. He actually had several ER visits where he states he was worked up and had stool studies done as well as labs at [place], although I do currently do not have any results of these, though he was told everything was normal. He did undergo a course of antibiotics and, recently, over the last several days, he feels like he is actually starting to feel about 80-90% better. He does feel that the diarrhea is improving and starting to become a little bit more formed. He also has less abdominal pain. He denies having any blood in his stool. No black-looking stool. No family history of colon or rectal cancer. He has never had any upper or lower endoscopy. PAST MEDICAL HISTORY: Epilepsy. PAST SURGICAL HISTORY: None. ALLERGIES: NONE. MEDICATIONS: Phenobarbital. FAMILY HISTORY: Negative for diabetes. Negative for heart disease. Negative for cancers. SOCIAL HISTORY: The patient is , nonsmoker. REVIEW OF SYSTEMS 12 systems reviewed, all deemed to be negative except for HPI. PHYSICAL EXAMINATION VITAL SIGNS: Stable, afebrile. GENERAL: Alert and oriented x3, no acute distress. HEENT: Unremarkable. HEART: Regular rate and rhythm. LUNGS: Normal respiratory effort. ABDOMEN: Soft, currently, nontender, nondistended. No guarding, rebound or rigidity. No hepatosplenomegaly or hernias noted to be present. SKIN: Warm and dry to touch. NEURO: Cranial nerves 2-12 grossly intact. EXTREMITIES: No clubbing, cyanosis or edema. ASSESSMENT: 1. Chronic diarrhea. 2. Epigastric pain. 3. Weight loss. PLAN: It does appear that the patient's symptoms are starting to improve. Although, it is possible this could have been some sort of enteritis, it does seem to be lasting a little longer than the typical course for that. He could even have some course of microscopic colitis or even a new onset up of Crohn's or ulcerative colitis that could be undiagnosed. I think it would be reasonable to proceed with upper and lower endoscopy scheduled for 12/20/2016 at 10 a.m. where we will take random biopsies on both the upper and lower endoscopy to evaluate his symptoms. We will wait for endoscopy for further recommendations. EXT JOB#: [id number] Dictated By: Dinesh Leon DO 11/22/16 0708 11/22/16 0708 Dictated Date/Time: 11/20/16 1140 Transcribed Date/Time: 11/20/16 1218 Normal [facility] NM HIDA SCAN W/CCKon 017 NM HIDA SCAN W/CCK [facility] [address] [place], [place] [address] Diagnostic Imaging Report : [id number] Signed Name: NADEGE HILLS MRUN: [id number] : 1975 Loc: NM Age / Sex: 40 / M ADM Status: REG CLI ADM Date: 11/05/16 Room/Bed: Ordering Physician: Dev Maya MD Procedure: NM HIDA SCAN W/CCK Order Number(s): [id number] Ordered Date: 11/05/16 Ordered Time: 0750 REASON FOR EXAM: EPIGASTRIC PAIN COMPARISON: Ultrasound gallbladder 10/28/2016. CT abdomen pelvis 10/21/2016. TECHNIQUE: Anterior planar flow and static imaging. Computer-generated time activity curves. FINDINGS: Nuclear hepatobiliary imaging was performed following intravenous administration of 4.9 mCi Tc 99m mebrofenin. Serial anterior imaging of the abdomen was performed and shows homogeneous hepatic tissue phase with rapid activity within the intra-and extrahepatic biliary ducts. There is prompt visualization of the gallbladder. Contractility was assessed following intravenous administration of 1.98 mcg sincalide CCK. Additional anterior imaging was performed. There is prompt small bowel spill. Computer generated time activity curve is noted and shows an ejection fraction of 56.4 percent, which is a mild to moderate contractile response. IMPRESSION: Patent hepatobiliary system with an ejection fraction of 56.4%. Dictated By: Sukumar Lin DO Dictated Date/Time: 11/05/16 1016 Signed By: Freddy Lin DO Signed Date/Time: 11/05/16 1022 Transcribed Date/Time: 11/05/16 1018 Normal [facility] US GALLBLADDERon 10-28-2016 GALLBLADDER [facility] [address] [place] [address] Diagnostic Imaging Report : [id number] Signed Name: NADEGE HILLS MRUN: [id number] : 1975 Loc: US Age / Sex: 40 / M ADM Status: REG CLI ADM Date: 10/28/16 Room/Bed: Ordering Physician: Tracy Rudd MD Procedure: US GALLBLADDER Order Number(s): [id number] Ordered Date: 10/28/16 Ordered Time: 1037 REASON FOR EXAM: EPIGASTRIC PAIN COMPARISON: CT abdomen pelvis 10/21/2016. TECHNIQUE: Right upper quadrant imaging. FINDINGS: The gallbladder is not distended. No intraluminal shadowing stones. No wall thickening. The common hepatic duct measures 4.7 mm which is within normal limits. No abnormal fluid collections. The technologist reports a positive Lr sign during real-time imaging. IMPRESSION: No evidence of shadowing stone, distention or duct dilation. There is a positive Lr sign during real-time imaging. Dictated By: Sukumar Lin DO Dictated Date/Time: 10/28/16 1106 Signed By: Freddy Lin DO Signed Date/Time: 10/28/16 1111 Transcribed Date/Time: 10/28/16 1107 [facility] C. DIFFICILE DNAon 7 C. DIFFICILE DNA Negative Normal [facility] Comment on above: Order Comment: Site: stool Performed By: #### 4 [id number] ####[facility] [address], [place] [phone] CBC WITH DIFFERENTIALon 09-0 8-2017 ABSOLUTE MONO 1.5 10 3/uL High 0.2-0.6 [facility] Comment on above: Performed By: #### 4 [id number] ####[facility] [address] [phone] ABSOLUTE NEUT 8.4 10 3/uL High 2.4-6.6 [facility] Comment on above: Performed By: #### 4 [id number] ####[facility] [address] [phone] Basophils Auto #/vol (Bld) 0.0 10 3/uL Normal 0.0-0.1 [facility] Comment on above: Performed By: #### 4 [id number] ####[facility] [address] [phone] Basophils/100 WBC Auto (Bld) 0.3 % Normal [facility] Comment on above: Performed By: #### 4 [id number] ####[facility] [address] [phone] Eosinophils 0.1 10 3/uL Normal 0.1-0.3 [facility] Comment on above: Performed By: #### 4 [id number] ####[facility] [address] [phone] Eosinophils/100 leukocytes 0.8 % Normal [facility] Comment on above: Performed By: #### 4 [id number] ####[facility] [address] [phone] Erythrocyte distribution width Auto Ratio (RBC) 13.0 % Normal 11.5-14.5 [facility] Comment on above: Performed By: #### 4 [id number] ####[facility] [address] [phone] Erythrocytes (RBC) 5.27 x10 6/uL Normal 3.80-5.80 [facility] Comment on above: Performed By: #### 4 [id number] ####[facility] [address] [phone] Hematocrit (HCT) 51.2 % High 37.7-49.7 [facility] Comment on above: Performed By: #### 4 [id number] ####[facility] [address] [phone] Hemoglobin mass conc (Bld) 17.6 g/dL High 12.8-16.8 [facility] Comment on above: Performed By: #### 4 [id number] ####[address] [phone] Lymphocytes 1.5 10 3/uL Normal 1.2-3.3 [facility] Comment on above: Performed By: #### 4 [id number] ####[address] [phone] Lymphocytes/100 leukocytes 12.7 % Normal [facility] Comment on above: Performed By: #### 4 [id number] ####[address] [phone] MCH 33.4 pg Normal 26.0-34.0 [facility] Comment on above: Performed By: #### 4 [id number] ####[facility] [address] [phone] MCHC mass conc (RBC) 34.4 g/dL Normal 31.0-36.5 [facility] Comment on above: Performed By: #### 4 [id number] ####[address] [phone] MCV 97.2 fL Normal 83.0-103.0 [facility] Comment on above: Performed By: #### 4 [id number] ####[facility] [address] [phone] Monocytes/100 leukocytes 13.0 % Normal [facility] Comment on above: Performed By: #### 4 [id number] ####[facility] [address] [phone] Neutrophils/100 leukocytes 73.2 % Normal [facility] Comment on above: Performed By: #### 4 [id number] ####[facility] [address] [phone] Platelets 264.0 x10 3/uL Normal 150.0-440. 0 [facility] Comment on above: Performed By: #### 4 [id number] ####[facility] [address] [phone] WBC (Leukocytes) 11.4 x10 3/uL High 4.0-11.0 [facility] Comment on above: Performed By: #### 4 [id number] ####[facility] [address] [phone] GFRon 10-25-2016 eGFR (MDRD) 56 mL/min/{1.73_m2} Normal [facility] Comment on above: Result Comment: To e stimate the GFR for Americans, multiply the resultprovided by 1.21.Population mean GFR = 107 ml/min/1.73 sq.m. for ages 30-39 yrsFive stages of CKD and GFR for each stage:Stage 1 GFR >=90Stage 2 GFR 60-89Stage 3 GFR 30-59Stage 4 GFR 15-29Stage 5 GFR <15 - Performed By: #### G FR1 ####[facility] [address] [phone] LIPASEon 10-25-2016 Lipase 45 U/L Normal 23-300 [facility] Comment on above: Performed By: #### 4 [id number] ####[facility] [address] [phone] METABOLIC PANELon 10-25-2016 Alanine aminotransferase (ALT) 77 U/L High 21-72 [facility] Comment on above: Performed By: #### 4 [id number] ####[facility] [address] [phone] ALK PHOS 152 U/L High 24-126 [facility] Comment on above: Performed By: #### 4 [id number] ####[facility] [address] [phone] Calcium 9.8 mg/dL Normal 8.4-10.4 [facility] Comment on above: Performed By: #### 4 [id number] ####[address] [phone] Glucose mass conc 99 mg/dL Normal 65-100 [facility] Comment on above: Performed By: #### 4 [id number] ####[address] [phone] Protein 8.4 g/dL High 6.3-8.2 [facility] Comment on above: Performed By: #### 4 [id number] ####[address] [phone] Urea nitrogen 22 mg/dL Normal 8-26 [facility] Comment on above: Performed By: #### 4 [id number] ####[address] [phone] Aspartate aminotransferase (AST) 33 U/L Normal 3-55 [facility] Comment on above: Performed By: #### 4 [id number] ####[facility] [address] [phone] Bilirubin Ql (U) 0.7 mg/dL Normal 0.2-1.6 [facility] Comment on above: Performed By: #### 4 [id number] ####[address] [phone] CO2 20 mmol/L Low 22-30 [facility] Comment on above: Performed By: #### [id number] ####[facility] [address] [phone] Creatinine 1.41 mg/dL High 0.66-1.25 [facility] Comment on above: Performed By: #### [id number] ####[facility] [employer] [place], [place] [phone] Chloride 101 mmol/L Normal 96-109 [facility] Comment on above: Performed By: #### [id number] ####[facility] [facility] [place], [place] [phone] Potassium molar conc 4.4 mmol/L Normal 3.6-5.1 [facility] Comment on above: Performed By: #### [id number] ####[facility] [employer] [place], [place] [phone] Sodium 137 mmol/L Normal 135-147 [facility] Comment on above: Performed By: #### [id number] ####[facility] [place], [place] [phone] Albumin 5.0 g/dL Normal 3.5-5.0 [facility] Comment on above: Performed By: #### 4 [id number] ####[facility] [facility] [place], [place] [phone] STOOL CULTUREon 10-25-2016 STOOL CULTURE NO SALMONELLA, SHIGE LLA OR YERSINIA ISOLATED. NO E COLI 0157:H7 ISOLATED NO CAMPYLOBACTER ISOLATED Normal [facility] Comment on above: Order Comment: Site: stool Performed By: #### 4 [id number] ####[facility] [place], [place] [phone] CBC WITH AUTO DIFFon 017 Basophils Auto #/vol (Bld) 0.0 10 3/uL Normal 0.0-0.2 [facility] Comment on above: Performed By: #### C MP, CBC, UA w RFX x2, LIPA 1, HPYLORI ####Main Lab - [id number] [place], [place] [address] Basophils/100 WBC Auto (Bld) 0.4 % Normal 0.0-1.0 [facility] Comment on above: Performed By: #### C MP, CBC, UA w RFX x2, LIPA 1, HPYLORI ####Main Lab - [id number] [place], [place] [address] Eosinophils 0.1 10 3/uL Normal 0.0-0.7 [facility] Comment on above: Performed By: #### C MP, CBC, UA w RFX x2, LIPA 1, HPYLORI ####Main Lab - [id number] [place] [phone] Eosinophils/100 leukocytes 1.4 % Normal 0.0-5.0 [facility] Comment on above: Performed By: #### C MP, CBC, UA w RFX x2, LIPA 1, HPYLORI ####Main Lab - [id number] [place], [place] [address] Erythrocyte distribution width Auto Ratio (RBC) 12.9 % Normal 11.5-14.0 [facility] Comment on above: Performed By: #### C MP, CBC, UA w RFX x2, LIPA 1, HPYLORI ####Main Lab - [id number] [place] [phone] Erythrocytes (RBC) 4.81 x10 6/uL Normal 4.38-5.71 [facility] Comment on above: Performed By: #### C MP, CBC, UA w RFX x2, LIPA 1, HPYLORI ####Main Lab - [id number] [place], [place] [address] Hematocrit (HCT) 46.1 % Normal 38.7-49.8 [facility] Comment on above: Performed By: #### C MP, CBC, UA w RFX x2, LIPA 1, HPYLORI ####Main Lab - [id number] [place], [place] [address] Hemoglobin mass conc (Bld) 15.7 g/dL Normal 12.9-16.6 [facility] Comment on above: Performed By: #### C MP, CBC, UA w RFX x2, LIPA 1, HPYLORI ####Main Lab - [id number] [place] [phone] Lymphocytes 1.4 10 3/uL Normal 1.0-3.5 [facility] Comment on above: Performed By: #### C MP, CBC, UA w RFX x2, LIPA 1, HPYLORI ####Main Lab - [id number] [place], [place] [address] Lymphocytes/100 leukocytes 14.7 % Low 24.0-44.0 [facility] Comment on above: Performed By: #### C MP, CBC, UA w RFX x2, LIPA 1, HPYLORI ####Main Lab - [id number] [place] 1492573 MCH 32.5 pg High 27.0-31.0 [facility] Comment on above: Performed By: #### C MP, CBC, UA w RFX x2, LIPA 1, HPYLORI ####Main Lab - [id number] [place] [phone] MCHC mass conc (RBC) 34.0 g/dL Normal 32.0-36.0 [facility] Comment on above: Performed By: #### C MP, CBC, UA w RFX x2, LIPA 1, HPYLORI ####Main Lab - [id number] [place] [phone] MCV 95.7 fL Normal 78.0-100.0 [facility] Comment on above: Performed By: #### C MP, CBC, UA w RFX x2, LIPA 1, HPYLORI ####Main Lab - [id number] [place] [phone] Monocytes 1.1 10 3/uL High 0.2-0.8 [facility] Comment on above: Performed By: #### C MP, CBC, UA w RFX x2, LIPA 1, HPYLORI ####Main Lab - [id number] [place] [address] Monocytes/100 leukocytes 11.6 % High 1.7-9.3 [facility] Comment on above: Performed By: #### C MP, CBC, UA w RFX x2, LIPA 1, HPYLORI ####Main Lab - [id number] [place] 1492573 Neutrophils 6.9 10 3/uL High 1.5-6.7 [facility] Comment on above: Performed By: #### C MP, CBC, UA w RFX x2, LIPA 1, HPYLORI ####Main Lab - [id number] [place], [place] [address] Platelet mean volume (PMV) 9.8 fL High 6.0-9.5 [facility] Comment on above: Performed By: #### C MP, CBC, UA w RFX x2, LIPA 1, HPYLORI ####Main Lab - [id number] [place], [place] [address] Platelets 205 10 3/uL Normal 150-450 [facility] Comment on above: Performed By: #### C MP, CBC, UA w RFX x2, LIPA 1, HPYLORI ####Main Lab - [id number] [place], [place] [address] Segmented Neutrophils/100 leukocytes 71.9 % High 36.0-66.0 [facility] Comment on above: Performed By: #### C MP, CBC, UA w RFX x2, LIPA 1, HPYLORI ####Main Lab - [id number] [place], [place] [address] WBC (Leukocytes) 9.5 10 3/uL Normal 4.0-10.5 [facility] Comment on above: Performed By: #### C MP, CBC, UA w RFX x2, LIPA 1, HPYLORI ####Main Lab - [id number] [place], [place] [address] COMPREHENSIVE METABOLIC PANE Stevie 10-21-2016 Albumin 4.0 g/dL Normal 3.9-5.0 [facility] Comment on above: Performed By: #### C MP, CBC, UA w RFX x2, LIPA 1, HPYLORI ####Main Lab - [id number] [place], [place] [address] Albumin/Globulin Ratio 1.3 {ratio} Normal 1.1-1.8 [facility] Comment on above: Performed By: #### C MP, CBC, UA w RFX x2, LIPA 1, HPYLORI ####Main Lab - [id number] [place], [place] [address] Alkaline phosphatase (ALP) 107 U/L Normal 43-122 [facility] Comment on above: Performed By: #### C MP, CBC, UA w RFX x2, LIPA 1, HPYLORI ####Main Lab - [id number] [place], [place] [address] ALT/SGPT 20 U/L Normal 7-56 [facility] Comment on above: Performed By: #### C MP, CBC, UA w RFX x2, LIPA 1, HPYLORI ####Main Lab - [id number] [place], [place] [address] Anion gap 13 mmol/L Normal 9-18 [facility] Comment on above: Performed By: #### C MP, CBC, UA w RFX x2, LIPA 1, HPYLORI ####Main Lab - [id number] [place] [address] AST/SGOT 17 U/L Normal 14-50 [facility] Comment on above: Result Comment: Spec imen Slightly Hemolyzed. Performed By: #### C MP, CBC, UA w RFX x2, LIPA 1, HPYLORI ####Main Lab - [id number] [address] Bilirubin (total) 0.5 mg/dL Normal 0.2-1.3 [facility] Comment on above: Performed By: #### C MP, CBC, UA w RFX x2, LIPA 1, HPYLORI ####Main Lab - [id number] [place], [place] [address] BUN (urea nitrogen) 19 mg/dL Normal 7-21 [facility] Comment on above: Performed By: #### C MP, CBC, UA w RFX x2, LIPA 1, HPYLORI ####Main Lab - [id number] [place], [place] [address] BUN/Creatinine Ratio 19.6 Ratio Normal 5.0-42.0 [facility] Comment on above: Performed By: #### C MP, CBC, UA w RFX x2, LIPA 1, HPYLORI ####Main Lab - [id number] [place], [place] [address] Calcium 8.6 mg/dL Normal 8.4-10.2 [facility] Comment on above: Performed By: #### C MP, CBC, UA w RFX x2, LIPA 1, HPYLORI ####Main Lab - [id number] [place], [place] [address] Chloride 105 mmol/L Normal 98-107 [facility] Comment on above: Performed By: #### C MP, CBC, UA w RFX x2, LIPA 1, HPYLORI ####Main Lab - [id number] [place], [place] [address] CO2 22 mmol/L Normal 22-31 [facility] Comment on above: Performed By: #### C MP, CBC, UA w RFX x2, LIPA 1, HPYLORI ####Main Lab - [id number] [place], [place] [address] Creatinine 0.97 mg/dL Normal 0.80-1.30 [facility] Comment on above: Performed By: #### C MP, CBC, UA w RFX x2, LIPA 1, HPYLORI ####Main Lab - [id number] [place], [place] [address] eGFR (non-black) mL/min/{1.73_m2} Normal [facility] Comment on above: Performed By: #### C MP, CBC, UA w RFX x2, LIPA 1, HPYLORI ####Main Lab - [id number] [place], [place] [address] Globulin 3.1 g/dL Normal [facility] Comment on above: Performed By: #### C MP, CBC, UA w RFX x2, LIPA 1, HPYLORI ####Main Lab - [id number] [place], [place] [address] Glucose mass conc 97 mg/dL Normal 70-99 [facility] Comment on above: Result Comment: The glucose range is based on recommendations from theAmerican Diabetes Association for fasting blood glucoserange. Performed By: #### C MP, CBC, UA w RFX x2, LIPA 1, HPYLORI ####Main Lab - [id number] [place], [place] [address] Potassium molar conc 3.9 mmol/L Normal 3.6-5.0 [facility] Comment on above: Result Comment: Spec imen Slightly Hemolyzed. Performed By: #### C MP, CBC, UA w RFX x2, LIPA 1, HPYLORI ####Main Lab - [id number] [place] [address]2573 Protein 7.1 g/dL Normal 6.3-8.2 [facility] Comment on above: Performed By: #### C MP, CBC, UA w RFX x2, LIPA 1, HPYLORI ####Main Lab - [id number] [place] [address]25[address] Sodium 136 mmol/L Low 137-145 [facility] Comment on above: Performed By: #### C MP, CBC, UA w RFX x2, LIPA 1, HPYLORI ####Main Lab - [id number] [place] [address]2573 Age 40 Years Normal [facility] Comment on above: Performed By: #### C MP, CBC, UA w RFX x2, LIPA 1, HPYLORI ####Main Lab - [id number] [place] [address]2573 CT ABDOMEN PELVIS W/Oon 0 CT ABDOMEN PELVIS W/O [facility] [address] [place] [address] Diagnostic Imaging Report : [id number] Signed Name: NADEGE HILLS MRUN: [id number] : 1975 Loc: ED Age / Sex: 40 / M ADM Status: DEP ER ADM Date: 10/20/16 Room/Bed: Ordering Physician: Benja Garcia MD Procedure: CT ABDOMEN PELVIS W/O Order Number(s): [id number] Ordered Date: 10/21/16 Ordered Time: 0140 REASON FOR EXAM: Epigastric pain FINDINGS: Unenhanced liver, spleen, pancreas, adrenal glands, gallbladder and kidneys unremarkable. Stomach unremarkable. Mild fluid distended small bowel. Large bowel unremarkable. No intraperitoneal free air or free fluid. Osseous detail demonstrates no concerning findings. Visualized lung bases are clear. IMPRESSION: Mild fluid distended small bowel may represent enteritis. Exam otherwise unremarkable. Dictated By: Nabil Bonilla DO Dictated Date/Time: 10/21/16824 Signed By: Nabil Bonilla DO DO Signed Date/Time: 10/21/16828 Transcribed Date/Time: 10/21/16825 Normal [facility] HELICOBACTER PYLORIon 2016 HELICOBACTER PYLORI Negative Normal NEGATIVE [facility] Comment on above: Result Comment: @Int ernal Pos/Neg controls reacted as detailed in procedure@literature. Performed By: #### C MP, CBC, UA w RFX x2, LIPA 1, HPYLORI ####Main Lab - [id number] [place], [place] [address] LIPASEon 10-21-2016 Lipase 13 U/L Low 23-300 [facility] Comment on above: Performed By: #### C MP, CBC, UA w RFX x2, LIPA 1, HPYLORI ####Main Lab - [id number] [place], [place] [address] URINE PROTOCOLon 10-21-2016 BLOOD,URINE Negative Normal NEGATIVE [facility] Comment on above: Performed By: #### C MP, CBC, UA w RFX x2, LIPA 1, HPYLORI ####Main Lab - [id number] [place], [place] [address] NITRITE,URINE Negative Normal NEGATIVE [facility] Comment on above: Performed By: #### C MP, CBC, UA w RFX x2, LIPA 1, HPYLORI ####Main Lab - [id number] [place], [place] [address] PROTEIN,URINE Negative Normal NEGATIVE [facility] Comment on above: Performed By: #### C MP, CBC, UA w RFX x2, LIPA 1, HPYLORI ####Main Lab - [id number] [place], [place] [address] Urine, clarity SLIGHTLY-CLOUDY Normal [facility] Comment on above: Performed By: #### C MP, CBC, UA w RFX x2, LIPA 1, HPYLORI ####Main Lab - [id number] [place] [address] Urine, color YELLOW Normal [facility] Comment on above: Performed By: #### C MP, CBC, UA w RFX x2, LIPA 1, HPYLORI ####Main Lab - [id number] [place], [place] [address] Urine, glucose presence Negative Normal NEGATIVE [facility] Comment on above: Performed By: #### C MP, CBC, UA w RFX x2, LIPA 1, HPYLORI ####Main Lab - [id number] [place], [place] [address] Urine, ketones presence Negative Normal NEGATIVE [facility] Comment on above: Performed By: #### C MP, CBC, UA w RFX x2, LIPA 1, HPYLORI ####Main Lab - [id number] [place], [place] [address] Urine, leukocyte esterase presence Negative Normal NEGATIVE [facility] Comment on above: Performed By: #### C MP, CBC, UA w RFX x2, LIPA 1, HPYLORI ####Main Lab - [id number] [place], [place] [address] Urine, pH 5.0 [pH] Normal 5.0-8.0 [facility] Comment on above: Performed By: #### C MP, CBC, UA w RFX x2, LIPA 1, HPYLORI ####Main Lab - [id number] [place], [place] [address] Urine, specific gravity 1.026 SP.GR. Normal <1.029 [facility] Comment on above: Performed By: #### C MP, CBC, UA w RFX x2, LIPA 1, HPYLORI ####Main Lab - [id number] [place], [place] [address] UROBILINOGEN,URINE Negative Normal <2 mg/dL [facility] Comment on above: Performed By: #### C MP, CBC, UA w RFX x2, LIPA 1, HPYLORI ####Main Lab - [id number] [place], [place] [address] Vital Signs Date Time Vital Sign Value Performing Clinician Facility 01-26-2021 15:55-0500 Body height 193 cm No Pcp Required [facility] 01-26-2021 15:55-0500 Body temperature 97.88 [degF] No Pcp Required [facility] 01-26-2021 15:55-0500 Diastolic blood pressure 94 mm[Hg] No Pcp Required [facility] 01-26-2021 15:55-0500 Heart rate 87 /min No Pcp Required [facility] 01-26-2021 15:55-0500 SaO2% (BldA) [Mass fraction] 94 % No Pcp Required [facility] 01-26-2021 15:55-0500 Systolic blood pressure 154 mm[Hg] No Pcp Required [facility] Encounters Encounter Date Encounter Type Care Provider Facility Start: 10-15-2023 ambulatory Antonieta Williamsonan Facility:[facility] Start: 10-15-2023 End: 10-15-2023 ambulatory [facility] Facility:[facility] Start: 09-05-2023 End: 09-05-2023 ambulatory [facility] Facility:[facility] Start: 02-19-2023 End: 02-19-2023 ambulatory [facility] Work Phone: Start: 02-19-2023 End: 02-19-2023 Patient encounter procedure [facility] Start: 02-19-2023 End: 02-19-2023 ambulatory [facility] Facility:[facility] Start: 01-17-2022 End: 01-18-2022 ambulatory GURVINDER HOLLINS Facility:B Start: 11-27-2021 End: 11-27-2021 ambulatory [facility] Work Phone: Start: 11-27-2021 End: 11-27-2021 Patient encounter procedure [facility] Specimen Start: 08-23-2021 End: 08-23-2021 Patient encounter procedure [facility] Start: 08-15-2021 End: 08-15-2021 Patient encounter procedure [facility] Start: 01-26-2021 End: 01-26-2021 Emergency department patient visit Cj J[facility] Start: 08-13-2017 End: 08-13-2017 Ambulatory Kizzy Mtz Facility:[facility] Start: 01-15-2017 Ambulatory Dinesh Flores ity:[facility] Start: 11-05-2016 End: 11-05-2016 Ambulatory Dev Maya Facility:[facility] Start: 10-28-2016 End: 10-28-2016 Ambulatory Tracy Rudd Facility:[facility] Start: 10-25-2016 Emergency department patient visit SARAN GONZÁLES [facility] Start: 10-25-2016 End: 10-25-2016 Emergency department patient visit UNSPECIFIED PROVIDER [facility] Start: 10-21-2016 End: 10-21-2016 Emergency department patient visit Unknown PCP Facility:[facility] Plan of Treatment Date Care Activity Detail Author Testosterone Free [M ass/volume] in Serum or Plasma [facility] Work Phone: Testosterone measurement [facility] Work Phone: [facility] Work Phone: Payers Date Payer Category Payer Self-pay [id number] 2021 Unknown [id number] 1975 Unknown [id number] Unknown [id number] Unknown [employer] [facility] Unknown [id number] Unknown [id number] Unknown [id number] Unknown [id number] Social History Date Type Detail Facility Tobacco smoking status NHIS Unknown if ever smoked [facility] Work Phone: Start: 1975 Sex Assigned At Male [facility] Start: 10-24-2022 Tobacco smokin g consumption unknown [facility] Goals Date Patient Goal Desired Activity /State Evaluation note Note Date & Type Note Facility Evaluation note No assessment information availa ble [facility] Work Phone: Summary Purpose Family History No Family History Records Found Relationship Condition Age at Onset Recorded Date/T betzy grandmother Cerebrovascular accident (CVA) Unknown Hypertension Unknown mother Hypertension Unknown father Hypertension Unknown Advance Directives No Advanced Directives Records FoundNo Advanced Directives Records FoundNo Advanced Directives Records FoundNo Advanced Directives Records FoundNo Advanced Directives Records FoundNo Advanced Directives Records Found Assessments No Assessments Information Available Chief Complaint and Reason for Visit Chief Complaint CHRONIC SEROUS OTITI S MEDIA/RIGHT EAR Additional Source Comments (unrecognized sect ion and content) No Status Records FoundNo Status Records FoundNo Status Records FoundNo Status Records FoundNo Status Records FoundNo Status Records Found INFORMATION SOURCE (unrecogn ized section and content) DATE CREATED AUTHOR 08/13/2017 [facility] DATE CREATED AUTHOR AUTHOR'S ORGANIZ ATION 08/14/2017 [facility] DATE CREATED AUTHOR AUTHOR'S ORGANIZ ATION 01/15/2019 [facility] DATE CREATED AUTHOR AUTHOR'S ORGANIZ ATION 02/01/2021 [facility] DATE CREATED AUTHOR AUTHOR'S ORGANIZ ATION 01/18/2022 [facility] DATE CREATED AUTHOR AUTHOR'S ORGANIZ ATION 11/02/2023 [facility] <item> Privacy Markings (unrecogniz ed section and content) Section Author: Kizzy Harvey PROHIBITION ON REDISCLOSURE OF CONFIDENTIAL INFORMATION This notice accompanies a disclosure of information concerning a client made to you with the consent of such client. Goals (unrecognized section and content) Goals may be documented in a n alternate sectionGoals may be documented in an alternate sectionGoals may be documented in an alternate sectionGoals may be documented in an alternate section Care Teams (unrecognized sec tion and content) Team Status: Active Member Role Status Dates Dr. Janak Porter MD Primary Care Provider Active Team Status: Inactive Member Role Status Dates Dr. Janak Porter MD Primary Care Provider, [facility] Provider Active FOR RECORDS PERTAINING TO PATIENTS WHO ARE [...] BE BASED ON THE PRIMARY CLINICAL RECORDS. [employer] [facility]. provides no warranty or guarantee of the accuracy or completeness of information in this document.
[2024-11-12 16:51] LABS: Mucous, Urine 0 SEEN /hpf (<or=2+); Red Blood Cells-Urine 0 SEEN /hpf (0-5)
[2024-11-12 18:45] LABS: Hematocrit 47.1 % (40-54); Hemoglobin 15.7 g/dL (13.0-16.5); Immature Granulocytes Count 0.020 X10^3/uL (0.0-0.0); Mean Corp Hgb Conc 33.3 g/dL (32-36); Mean Corpuscular Volume 97.1 fL (80-94); Mean Platelet Vol. 12.1 fl (6.2-12.0); NRBC Flagged by Analyzer 0 % (0-5); Platelet Count 202 K/mm3 (150-450); RBC Distribution Width CV 13.1 % (11.6-14.6); RBC Distribution Width SD 46.8 fl (35.1-43.9); Red Blood Count 4.85 M/mm3 (4.6-6.2); White Blood Count 8.9 K/mm3 (4.4-11.0)
[2024-11-12 19:19] LABS: Cholesterol 159 mg/dL (<=200); Low Density Lipoprotein Calc. 61 mg/dL; Magnesium 2.1 mg/dL (1.5-2.2); PSA,Total - Annual Screen 0.51 ng/mL (0.02-4.00); Triglycerides 287 mg/dL; Very Low Density Lipoprotein 57 mg/dL (5-40); cholesterol:hdl ratio screen 3.89
[2024-11-12 20:45] LABS: Color, Urine Yellow (Yellow); Glucose, Dipstick Normal (Normal); Ketone-Dipstick Negative (Negative); Leukocyte Esterase-Dipstick Negative /ul (Negative); Nitrite-Dipstick Negative (Negative); Occult Blood-Urine 10 /ul (Negative); Protein-Dipstick Negative (Negative); Specific Gravity, Urine 1.010 (1.002-1.030); Urine Bilirubin Dipstick Negative (Negative)
[2024-11-12 21:26] LABS: Squamous Epithelial Cells - UA 0-5 SEEN /hpf (0-5)
== END | disposition home or self-care (01) ==
LOC: MFPLAB 15:48
PROVIDERS: PCP Family Medicine; Referring Provider Family Medicine; Visit Provider Family Medicine
DX: I10 Essential (primary) hypertension (principal); E78.5 Hyperlipidemia, unspecified; Z12.5 Encounter for screening for malignant neoplasm of prostate
CPT/HCPCS: 36415; 80061; 81001; 83036; 83735; 84153; 84443; 85025; G0103